=== PATIENT | male | born 1995 | race Hispanic/Latino ===

== ENCOUNTER 2018-09-07 22:27 | Emergency (ER) | payer BC, OTHER, SELFPAY ==
[2018-09-07] MEDS ORDERED: DEXAMETHASONE 4 MG/ML VIAL ONE (23:27)
[2018-09-07] MEDS ORDERED: HYDROCODONE/CHLORPHEN 5 ML/OSYR ONE (23:27)
[2018-09-07] MEDS ORDERED: PEN G BENZ LA 2.4 MU/4 ML SYRINGE IM ONE (23:48)
--- NOTE | 2018-09-07 23:56 | ER ---
Nurse's Notes [facility] Name: Jesus Pitt Age: 22 yrs Sex: Male : 1995 Arrival Date: 09/07/2018 Time: 22:30 Bed 16 Private MD: Diagnosis: Streptococcal pharyngitis;Fever presenting with conditions classified elsewhere Presentation: 09/07 22:38 Presenting complaint: Patient states: he has a sore throat and cough, feeling weak with bb cold sweats x 2 days pt is taking OTC medications with no relief. Transition of care: patient was not received from another setting of care. Onset of symptoms was September 05, 2018. Risk Assessment: Do you want to hurt yourself or someone else? Patient reports no desire to harm self or others. Initial Sepsis Screen: Does the patient meet any 2 criteria? No. Patient's initial sepsis screen is negative. Does the patient have a suspected source of infection? No. Patient's initial sepsis screen is negative. Care prior to arrival: None. 22:38 Method Of Arrival: Ambulatory bb 22:38 Acuity: KARLA 4 bb Historical: - Allergies: 22:42 No Known Allergies; bb - Home Meds: 22:42 None [Active]; bb - PMHx: 22:42 ADD/ADHD; bb - PSHx: 22:42 None; bb - Immunization history:: Adult Immunizations unknown. - Ebola Screening: : No symptoms or risks identified at this time. - Social history:: Smoking status: Patient uses tobacco products, denies chronic smoking, but will smoke occasionally, Patient uses alcohol, but reports only rare drinking. Screenin:40 Abuse screen: Denies threats or abuse. Nutritional screening: No deficits noted. jb4 Tuberculosis screening: No symptoms or risk factors identified. Fall Risk None identified. Assessment: 22:40 General: Appears in no apparent distress. uncomfortable, Behavior is calm, cooperative, jb4 appropriate for age. Pain: Complains of pain in neck Pain does not radiate. Pain currently is 4 out of 10 on a pain scale. Neuro: Level of Consciousness is awake, alert, obeys commands, Oriented to person, place, time, situation. Cardiovascular: Heart tones S1 S2 present Patient's skin is warm and dry. Respiratory: Reports cough that is non-productive, Airway is patent Respiratory effort is even, unlabored, Respiratory pattern is regular, symmetrical, Breath sounds are clear bilaterally. GI: No signs and/or symptoms were reported involving the gastrointestinal system. : No signs and/or symptoms were reported regarding the genitourinary system. EENT: Throat is reddened. Derm: Skin is intact, Skin is pink, warm \T\ dry. Musculoskeletal: Circulation, motion, and sensation intact. 09/08 00:09 Reassessment: Patient appears in no apparent distress at this time. Patient and/or jb4 family updated on plan of care and expected duration. Pain level reassessed. Patient is alert, oriented x 3, equal unlabored respirations, skin warm/dry/pink. Patient states feeling better. Vital Signs: 09/07 22:42 BP 115 / 63; Pulse 104; Resp 18 S; Temp 99.2(O); Pulse Ox 100% on R/A; Weight 104.33 kg bb (R); Height 5 ft. 11 in. (180.34 cm) (R); Pain 9/10; 22:55 BP 114 / 73; Pulse 100; Resp 18; Pulse Ox 99% on R/A; mt 09/08 00:09 BP 109 / 53; Pulse 96; Resp 18; Pulse Ox 100% on R/A; jb4 09/07 22:42 Body Mass Index 32.08 (104.33 kg, 180.34 cm) bb ED Course: 09/07 22:30 Patient arrived in ED. es 22:39 Jesus Antonio, RN is Primary Nurse. jb4 22:40 Patient has correct armband on for positive identification. Bed in low position. Call jb4 light in reach. Side rails up X 1. Pulse ox on. NIBP on. 22:42 Triage completed. bb 22:42 Naye Santamaria FNP-C is PHCP. snw 22:42 Walter Kimbrough MD is Attending Physician. snw 22:42 Arm band placed on Patient placed in an exam room, on a stretcher, on pulse oximetry. bb Family accompanied patient. 09/08 00:09 No provider procedures requiring assistance completed. Patient did not have IV access jb4 during this emergency room visit. Administered Medications: 09/07 23:25 Drug: Tussionex Pennkinetic ER 5 ml Route: PO; jb4 09/08 00:12 Follow up: Response: No adverse reaction; Pain is decreased [facility] 09/07 23:26 Drug: Decadron - Dexamethasone 10 mg {Note: given PO per provider orders. .} Route: jb4 IVP; Site: Other; 09/08 00:11 Follow up: Response: No adverse reaction 4 09/07 23:46 Drug: Bicillin L-A 2.4 million units Route: IM; Site: left gluteus; jb4 09/08 00:11 Follow up: Response: No adverse reaction jb4 Outcome: 09/07 23:55 Discharge ordered by MD. jim 09/08 00:09 Discharged to home ambulatory, with family. jb4 Condition: stable Discharge instructions given to patient, family, Instructed on discharge instructions, follow up and referral plans. medication usage, Demonstrated understanding of instructions, follow-up care, medications, Prescriptions given X 2. 00:12 Patient left the ED. jb4 Signatures: Naye Santamaria, LENS CLEANER-C LENS CLEANER-Csnw Jeanette Bueno Brenda, RN RN Jesus Acosta RN RN jbNilam Hensley ok
--- NOTE | 2018-09-07 23:56 | EDPHYS ---
Physician Documentation [facility] Name: Jesus Pitt Age: 22 yrs Sex: Male : 1995 Arrival Date: 09/07/2018 Time: 22:30 Bed 16 Private MD: ED Physician Walter Kimbrough HPI: 09/07 23:22 This 22 yrs old Male presents to ER via Ambulatory with complaints of Fever, snw Cough, Sore Throat, Congestion. 23:22 The patient reports fever, not measured (subjective). Onset: The symptoms/episode snw began/occurred suddenly, 2 day(s) ago, and became persistent. Modifying factors: there are no obvious modifying factors. Associated signs and symptoms: Pertinent positives: cough, decreased appetite, myalgias, sinus congestion, sore throat. Severity of symptoms: At their worst the symptoms were moderate severe in the emergency department the symptoms are unchanged. The patient has not experienced similar symptoms in the past. The patient has not recently seen a physician. pt states he coughs until vomiting. Historical: - Allergies: 22:42 No Known Allergies; bb - Home Meds: 22:42 None [Active]; bb - PMHx: 22:42 ADD/ADHD; bb - PSHx: 22:42 None; bb - Immunization history:: Adult Immunizations unknown. - Ebola Screening: : No symptoms or risks identified at this time. - Social history:: Smoking status: Patient uses tobacco products, denies chronic smoking, but will smoke occasionally, Patient uses alcohol, but reports only rare drinking. ROS: 23:21 Eyes: Negative for injury, pain, redness, and discharge, Neck: Negative for injury, snw pain, and swelling, Cardiovascular: Negative for chest pain, palpitations, and edema, Abdomen/GI: Negative for abdominal pain, nausea, vomiting, diarrhea, and constipation, Back: Negative for injury and pain, : Negative for injury, bleeding, discharge, and swelling, MS/Extremity: Negative for injury and deformity, Skin: Negative for injury, rash, and discoloration, Neuro: Negative for headache, weakness, numbness, tingling, and seizure. 23:21 Constitutional: Positive for body aches, chills, fatigue, fever, malaise, poor PO intake. 23:21 ENT: Positive for sinus congestion, sore throat. 23:21 Respiratory: Positive for cough. Exam: 23:20 Head/Face: Normocephalic, atraumatic. Eyes: Pupils equal round and reactive to light, snw extra-ocular motions intact. Lids and lashes normal. Conjunctiva and sclera are non-icteric and not injected. Cornea within normal limits. Periorbital areas with no swelling, redness, or edema. Neck: Trachea midline, no thyromegaly or masses palpated, and no cervical lymphadenopathy. Supple, full range of motion without nuchal rigidity, or vertebral point tenderness. No Meningismus. Chest/axilla: Normal chest wall appearance and motion. Nontender with no deformity. No lesions are appreciated. 23:20 Abdomen/GI: Soft, non-tender, with normal bowel sounds. No distension or tympany. No guarding or rebound. No evidence of tenderness throughout. Back: No spinal tenderness. No costovertebral tenderness. Full range of motion. Skin: Warm, dry with normal turgor. Normal color with no rashes, no lesions, and no evidence of cellulitis. MS/ Extremity: Pulses equal, no cyanosis. Neurovascular intact. Full, normal range of motion. Neuro: Awake and alert, GCS 15, oriented to person, place, time, and situation. Cranial nerves II-XII grossly intact. Motor strength 5/5 in all extremities. Sensory grossly intact. Cerebellar exam normal. Normal gait. Psych: Awake, alert, with orientation to person, place and time. Behavior, mood, and affect are within normal limits. 23:20 Constitutional: The patient appears awake, anxious, restless, uncomfortable. 23:20 ENT: External ear(s): are unremarkable, TM's: are normal, Nose: is normal, Mouth: is normal, Posterior pharynx: Airway: normal, Tonsils: bilaterally enlarged, with erythema, with exudate, Voice: is hoarse. 23:20 Cardiovascular: Rate: tachycardic, Rhythm: regular, Heart sounds: normal. 23:20 Respiratory: the patient does not display signs of respiratory distress, Respirations: normal, Breath sounds: are clear throughout, bronchitic cough. Vital Signs: 22:42 BP 115 / 63; Pulse 104; Resp 18 S; Temp 99.2(O); Pulse Ox 100% on R/A; Weight 104.33 kg bb (R); Height 5 ft. 11 in. (180.34 cm) (R); Pain 07/15; 22:55 BP 114 / 73; Pulse 100; Resp 18; Pulse Ox 99% on R/A; mt 09/08 00:09 BP 109 / 53; Pulse 96; Resp 18; Pulse Ox 100% on R/A; jb4 09/07 22:42 Body Mass Index 32.08 (104.33 kg, 180.34 cm) bb MDM: 09/07 23:08 Patient medically screened. snw 23:56 Data reviewed: vital signs, nurses notes. Data interpreted: Pulse oximetry: on room air snw is 99 %. Interpretation: normal. Counseling: I had a detailed discussion with the patient and/or guardian regarding: the historical points, exam findings, and any diagnostic results supporting the discharge/admit diagnosis, lab results, the need for outpatient follow up, to return to the emergency department if symptoms worsen or persist or if there are any questions or concerns that arise at home. Special discussion: Based on the history and exam findings, there is no indication for further emergent testing or inpatient evaluation. I discussed with the patient/guardian the need to see the primary care provider for further evaluation of the symptoms. 09/07 22:43 Order name: Flu; Complete Time: 23:23 snw 09/07 22:43 Order name: Strep; Complete Time: 23:25 snw Administered Medications: 23:25 Drug: Tussionex Pennkinetic ER 5 ml Route: PO; [facility] 09/08 00:12 Follow up: Response: No adverse reaction; Pain is decreased [facility] 09/07 23:26 Drug: Decadron - Dexamethasone 10 mg {Note: given PO per provider orders. .} Route: jb4 IVP; Site: Other; 09/08 00:11 Follow up: Response: No adverse reaction [facility] 09/07 23:46 Drug: Bicillin L-A 2.4 million units Route: IM; Site: left gluteus; [facility] 09/08 00:11 Follow up: Response: No adverse reaction [facility] Disposition: 00:27 Co-signature as Attending Physician, Walter Kimbrough MD. pkl Disposition: 09/07/18 23:55 Discharged to Home. Impression: Streptococcal pharyngitis, Fever presenting with conditions classified elsewhere. - Condition is Stable. - Discharge Instructions: Fever, Adult, Strep Throat, Upper Respiratory Infection, Adult, Rehydration, Adult. - Prescriptions for Tessalon Perles 100 mg Oral Capsule - take 1 capsule by ORAL route every 8 hours As needed; 15 capsule. promethazine 25 mg Oral Tablet - take 1 tablet by ORAL route every 6 hours As needed; 20 tablet. - Work release form, Medication Reconciliation Form, Thank You Letter, Antibiotic Education, Prescription Opioid Use form. - Follow up: Private Physician; When: 2 - 3 days; Reason: Recheck today's complaints, Continuance of care, Re-evaluation by your physician. Follow up: Emergency Department; When: As needed; Reason: Worsening of condition. Signatures: Dispatcher [employer] EDMS Walter Kimbrough MD MD pkl Therrien, Shelly, COLLIN-C MANAGER WOUND-Kpw Janell Antonio, RN RN bb Jesus Antonio RN RN jb4 Corrections: (The following items were deleted from the chart) 00:12 09/07 23:55 09/07/2018 23:55 Discharged to Home. Impression: Streptococcal pharyngitis; jb4 Fever presenting with conditions classified elsewhere. Condition is Stable. Discharge Instructions: Fever, Adult, Strep Throat, Upper Respiratory Infection, Adult, Rehydration, Adult. Prescriptions for Tessalon Perles 100 mg Oral Capsule - take 1 capsule by ORAL route every 8 hours As needed; 15 capsule, promethazine 25 mg Oral Tablet - take 1 tablet by ORAL route every 6 hours As needed; 20 tablet. and Forms are Work release form, Medication Reconciliation Form, Thank You Letter, Antibiotic Education, Prescription Opioid Use. Follow up: Private Physician; When: 2 - 3 days; Reason: Recheck today's complaints, Continuance of care, Re-evaluation by your physician. Follow up: Emergency Department; When: As needed; Reason: Worsening of condition. snw
== END 2018-09-08 00:12 | disposition home or self-care (01) ==
LOC: ER 22:27
DX: J02.0 Streptococcal pharyngitis (principal); Z72.0 Tobacco use
CPT/HCPCS: 87081; 87804; 96372; 96374; 99283; J0561

== ENCOUNTER 2019-07-14 14:51 | Emergency (ER) | payer BC, OTHER ==
--- NOTE | 2019-07-14 17:04 | ER ---
Nurse's Notes [facility] Name: Jesus Pitt Age: 23 yrs Sex: Male : 1995 Arrival Date: 07/14/2019 Time: 14:56 Bed 24 Private MD: Diagnosis: Acute upper respiratory infection, unspecified Presentation: 07/14 15:05 Presenting complaint: Patient states: headache, sore throat, cough, nausea, vomiting, aa5 fatigue that began Sunday morning. Pt also c/o body aches. Transition of care: patient was not received from another setting of care. Onset of symptoms was July 2019. Risk Assessment: Do you want to hurt yourself or someone else? Patient reports no desire to harm self or others. Initial Sepsis Screen: Does the patient meet any 2 criteria? No. Patient's initial sepsis screen is negative. Does the patient have a suspected source of infection? No. Patient's initial sepsis screen is negative. Care prior to arrival: None. 15:05 Acuity: KARLA 3 aa5 15:05 Method Of Arrival: Ambulatory aa5 Historical: - Allergies: 15:07 No Known Allergies; aa5 - PMHx: 15:07 ADD/ADHD; Asthma; aa5 - PSHx: 15:07 None; aa5 - Immunization history:: Flu vaccine is not up to date. - Social history:: Smoking status: Patient uses tobacco products, denies chronic smoking, but will smoke occasionally. - Ebola Screening: : No symptoms or risks identified at this time. - Family history:: not pertinent. - Hospitalizations: : No recent hospitalization is reported. Screenin:10 Abuse screen: Denies threats or abuse. Denies injuries from another. Nutritional ca1 screening: No deficits noted. Tuberculosis screening: No symptoms or risk factors identified. Fall Risk None identified. Assessment: 15:10 General: Appears in no apparent distress. comfortable, Behavior is calm, cooperative, ca1 appropriate for age, Reports chills for 12-24 hours. Pain: Complains of pain in face and scalp Pain currently is 8 out of 10 on a pain scale. Pain began 1 day ago. Is intermittent. Neuro: Level of Consciousness is awake, alert, obeys commands, Oriented to person, place, time, situation. Cardiovascular: Heart tones S1 S2 present Capillary refill < 3 seconds Patient's skin is warm and dry. Pulses are all present. Respiratory: Reports cough that is productive, since yesterday Airway is patent Respiratory effort is even, unlabored, Respiratory pattern is regular, symmetrical, Breath sounds are clear bilaterally. GI: Abdomen is round non-distended, Bowel sounds present X 4 quads. Abd is soft and non tender X 4 quads. : No deficits noted. No signs and/or symptoms were reported regarding the genitourinary system. EENT: Reports nasal congestion since yesterday. Derm: Skin is intact, is healthy with good turgor, Skin is pink, warm \T\ dry. Musculoskeletal: Circulation, motion, and sensation intact. Capillary refill < 3 seconds, Range of motion: intact in all extremities. 16:31 Reassessment: Patient appears in no apparent distress at this time. Patient and/or ca1 family updated on plan of care and expected duration. Pain level reassessed. Patient is alert, oriented x 3, equal unlabored respirations, skin warm/dry/pink. Vital Signs: 15:07 BP 129 / 77; Pulse 91; Resp 18 S; Temp 99.1(O); Pulse Ox 100% on R/A; Weight 99.79 kg aa5 (R); Height 5 ft. 11 in. (180.34 cm) (R); Pain 7/10; 16:39 BP 125 / 71; Pulse 95; Resp 18; Temp 99.4(O); Pulse Ox 100% on R/A; ca1 15:07 Body Mass Index 30.68 (99.79 kg, 180.34 cm) aa5 ED Course: 14:56 Patient arrived in ED. aa5 15:05 Arm band placed on. aa5 15:06 Triage completed. aa5 15:13 Joel Ronquillo MD is Attending Physician. rn 15:17 Gayatri Mathew RN is Primary Nurse. ca1 15:24 Flu and/or RSV swab sent to lab. Strep swab sent to lab. Patient maintains SpO2 jp3 saturation greater than 95% on room air. 15:24 Flu Sent. jp3 15:24 Strep Sent. jp3 15:25 Bed in low position. Call light in reach. Verbal reassurance given. Pulse ox on. NIBP jp3 on. 16:46 No provider procedures requiring assistance completed. Patient did not have IV access ca1 during this emergency room visit. Administered Medications: No medications were administered Outcome: 16:40 Discharge ordered by . rn 16:46 Discharged to home ambulatory, with significant other. ca1 16:46 Condition: stable 16:46 Discharge instructions given to patient, Instructed on discharge instructions, follow up and referral plans. Demonstrated understanding of instructions, follow-up care. 16:47 Patient left the ED. ca1 Signatures: Joel Ronquillo MD MD rn Calderon, Audri, RN RN aa5 Philip Mccormack 3 Gayatri Mathew RN RN ca1
--- NOTE | 2019-07-14 17:05 | EDPHYS ---
Physician Documentation [facility] Name: Jesus Pitt Age: 23 yrs Sex: Male : 1995 Arrival Date: 07/14/2019 Time: 14:56 Bed 24 Private MD: ED Physician Joel Ronquillo HPI: 07/14 15:41 This 23 yrs old Male presents to ER via Ambulatory with complaints of Flu rn Symptoms. 15:41 The patient or guardian reports cough, flu symptoms, low-grade fever, myalgias, no rn appetite. Onset: The symptoms/episode began/occurred 3 day(s) ago. Severity of symptoms: At their worst the symptoms were moderate, in the emergency department the symptoms have improved. Modifying factors: The symptoms are alleviated by nothing, the symptoms are aggravated by nothing. The patient has not experienced similar symptoms in the past. Reports flu-like symptoms of myalgias, weakness, fatigue, malaise, low grade fever, for 3 days, no sick contacts. Denies fever. Decreased appetite. + chills and muscle aches.. Historical: - Allergies: 15:07 No Known Allergies; aa5 - PMHx: 15:07 ADD/ADHD; Asthma; aa5 - PSHx: 15:07 None; aa5 - Immunization history:: Flu vaccine is not up to date. - Social history:: Smoking status: Patient uses tobacco products, denies chronic smoking, but will smoke occasionally. - Ebola Screening: : No symptoms or risks identified at this time. - Family history:: not pertinent. - Hospitalizations: : No recent hospitalization is reported. ROS: 15:41 Constitutional: + fever and chills Eyes: Negative for injury, pain, redness, and broomcorn press feeder, ENT: + nasal congestion and sore throat Neck: Negative for injury, pain, and swelling, Cardiovascular: Negative for chest pain, palpitations, and edema, Respiratory: + non-productive cough, neg for sob Abdomen/GI: Negative for abdominal pain, vomiting, and constipation, MS/Extremity: Negative for injury and deformity, Skin: Negative for injury, rash, and discoloration, Neuro: Negative for headache, numbness, tingling, and seizure. Exam: 15:41 Constitutional: This is a well developed, well nourished patient who is awake, alert, rn and in no acute distress. NO difficulty walking to room. Head/Face: Normocephalic, atraumatic. Eyes: Pupils equal round and reactive to light, extra-ocular motions intact. Lids and lashes normal. Conjunctiva and sclera are non-icteric and not injected. Cornea within normal limits. Periorbital areas with no swelling, redness, or edema. ENT: MMM Neck: + tender right cervical LAD, no meningismus Cardiovascular: Regular rate and rhythm. No pulse deficits. Respiratory: Lungs have equal breath sounds bilaterally, clear to auscultation. No increased work of breathing, no retractions or nasal flaring. Abdomen/GI: soft, non-tender MS/ Extremity: Pulses equal, no cyanosis. Neurovascular intact. Full, normal range of motion. Equal circumference. Neuro: Awake and alert, GCS 15, oriented to person, place, time, and situation. Cranial nerves II-XII grossly intact. Motor strength 5/5 in all extremities. Sensory grossly intact. Cerebellar exam normal. Normal gait. Vital Signs: 15:07 BP 129 / 77; Pulse 91; Resp 18 S; Temp 99.1(O); Pulse Ox 100% on R/A; Weight 99.79 kg aa5 (R); Height 5 ft. 11 in. (180.34 cm) (R); Pain 7/10; 16:39 BP 125 / 71; Pulse 95; Resp 18; Temp 99.4(O); Pulse Ox 100% on R/A; ca1 15:07 Body Mass Index 30.68 (99.79 kg, 180.34 cm) aa5 MDM: 15:13 Patient medically screened. rn 16:39 Differential Diagnosis: Influenza Upper Respiratory Infection Pharyngitis Viral rn Syndrome. Data reviewed: vital signs, nurses notes, lab test result(s), and as a result, I will discharge patient. Counseling: I had a detailed discussion with the patient and/or guardian regarding: the historical points, exam findings, and any diagnostic results supporting the discharge/admit diagnosis, lab results, the need for outpatient follow up, to return to the emergency department if symptoms worsen or persist or if there are any questions or concerns that arise at home. Special discussion: I discussed with the patient/guardian in detail that at this point there is no indication for admission to the hospital. It is understood, however, that if the symptoms persist or worsen the patient needs to return immediately for re-evaluation. 07/14 15:13 Order name: Strep rn 07/14 15:13 Order name: Flu rn 07/14 16:07 Order name: Throat Culture EDMS Administered Medications: No medications were administered Disposition: 07/14/19 16:40 Discharged to Home. Impression: Acute upper respiratory infection, unspecified. - Condition is Stable. - Discharge Instructions: Upper Respiratory Infection, Adult, Viral Respiratory Infection. - Medication Reconciliation Form, Thank You Letter, Antibiotic Education, Prescription Opioid Use form. - Follow up: Private Physician; When: As needed; Reason: Recheck today's complaints, Re-evaluation by your physician. - Problem is new. - Symptoms have improved. Signatures: Dispatcher [employer] EDMS Joel Ronquillo MD MD rn Calderon, Maricel, RN RN aa5 Priyanka, Gayatri RN ARIANA ca1 Corrections: (The following items were deleted from the chart) 15:45 15:41 Constitutional: + fever and chills Eyes: Negative for injury, pain, redness, and broomcorn press feeder, ENT: + nasal congestion and sore throat Neck: Negative for injury, pain, and swelling, Cardiovascular: Negative for chest pain, palpitations, and edema, Respiratory: + non-productive cough, neg for sob Abdomen/GI: Negative for abdominal pain, vomiting, and constipation, MS/Extremity: Negative for injury and deformity, Skin: Negative for injury, rash, and discoloration, Neuro: Negative for headache, weakness, numbness, tingling, and seizure, rn 15:47 15:41 Constitutional: This is a well developed, well nourished patient who is awake, rn alert, and in no acute distress. NO difficulty walking to room. Head/Face: Normocephalic, atraumatic. Eyes: Pupils equal round and reactive to light, extra-ocular motions intact. Lids and lashes normal. Conjunctiva and sclera are non-icteric and not injected. Cornea within normal limits. Periorbital areas with no swelling, redness, or edema. ENT: MMM Neck: + tender right cervical LAD Cardiovascular: Regular rate and rhythm. No pulse deficits. Respiratory: Lungs have equal breath sounds bilaterally, clear to auscultation. No increased work of breathing, no retractions or nasal flaring. Abdomen/GI: soft, non-tender MS/ Extremity: Pulses equal, no cyanosis. Neurovascular intact. Full, normal range of motion. Equal circumference. Neuro: Awake and alert, GCS 15, oriented to person, place, time, and situation. Cranial nerves II-XII grossly intact. Motor strength 5/5 in all extremities. Sensory grossly intact. Cerebellar exam normal. Normal gait. rn 16:47 16:40 07/14/2019 16:40 Discharged to Home. Impression: Acute upper respiratory ca1 infection, unspecified. Condition is Stable. Forms are Medication Reconciliation Form, Thank You Letter, Antibiotic Education, Prescription Opioid Use. Follow up: Private Physician; When: As needed; Reason: Recheck today's complaints, Re-evaluation by your physician. Problem is new. Symptoms have improved. rn
[2019-07-14 19:12] VITALS: O2SAT 100
[2019-07-14 19:13] VITALS: BP 125/71; TEMP 99.4
== END 2019-07-14 16:47 | disposition home or self-care (01) ==
LOC: ER 14:51
DX: J06.9 Acute upper respiratory infection, unspecified (principal); Z72.0 Tobacco use
CPT/HCPCS: 87070; 87081; 87804; 99284

== ENCOUNTER 2020-05-12 13:20 | Emergency (ER) | payer OTHER, SELFPAY ==
--- OUTSIDE RECORDS SUMMARY | 2020-05-12 13:24 | XMS REPORT | Continuity of Care Document ---
:1995 Author Organization [facility] t Address [address] [place] [address] Care Team Providers Name Role Phone Rachel Denise Attending Clinician Doctor Unasslacho, Name Attending Clinician Unavailable Clay DUBON Attending Clinician Liberty POLANCO Attending Clinician Problems This patient has no known problems. Allergies, Adverse Reactions, Alerts This patient has no known allergies or adverse reactions. Medications This patient has no known medications. Procedures This patient has no known procedures. Encounters Start End Encounter Admission Attending Care Care Encounter Source Date/Time Date/Time Type Type Clinicians Facility Department ID 2019-07-25 2019-07-25 Emergency Piotr Borges [facility] [id number] [id number] 15:52:54 18:06:00 Rachel Garcia [id number] [place] [id number] [place] [id number] 2019-07-25 2019-07-25 Orders Doctor GARCIA [id number] 00:00:00 00:00:00 Only UnassAJ monk [id number] [place] [facility] [phone] [id number] 2019-07-17 2019-07-17 Office Clay [facility] [id number] 14:49:00 15:42:10 Visit Tabitha Garcia [id number] [place] [id number] Profess[facility] [phone] [place] 059 Building 2019-07-17 2019-07-17 Letter [facility] [id number] 00:00:00 00:00:00 (Out) [facility] [id number] [place] [id number] Professio [phone] [place] [address] [address] 2019-07-17 2019-07-17 Letter [facility] [id number] 00:00:00 00:00:00 (Out) [facility] [id number] [place] [id number] Professio [phone] [place] [address] [address] 2019-07-16 2019-07-16 Office [facility] [id number] 13:38:45 14:29:22 Visit [facility] [id number] [place] [id number] Professio [phone] [place] [address] [address] 2019-07-16 2019-07-16 Telephone [facility] [id number] 00:00:00 00:00:00 [facility] [id number] Surgical [id number] [facility] [phone] [address] [place] Results This patient has no known results.
[2020-05-12] MEDS ORDERED: HYDROCODONE/APAP 5/325 MG TAB ONE (14:48)
--- NOTE | 2020-05-12 15:05 | RAD REPORT ---
EXAM DESCRIPTION: CT - Stone Protocol - 05/12/2020 2:45 pm CLINICAL HISTORY: PAIN, left back and flank pain, left lower extremity radiculopathy COMPARISON: No comparisons TECHNIQUE: Axial 3 mm thick images were obtained without oral or IV contrast. The [id number] span s the entirety of the system including uppermost abdomen and lung bases. All CT scans are performed using dose optimization technique as appropriate and may include automated exposure control or mA/KV adjustment according to patient size. FINDINGS: No hydronephrosis is present and no obstructing ureteral calculi. No suspicious renal mass es. Isodense masses and pyelonephritis are not excluded on a stone protocol CT scan. No significant a drenal finding. No urinary bladder suspicious finding. Imaged portions of the liver, spleen and pancreas show no suspicious findings on non-contrast imaging . No gallbladder or biliary tree abnormality identified. No suspicious bowel findings. Appendix is normal. No hernia, mass or bulky lymphadenopathy noted. No free air, free fluid or inflammatory stranding. No acute bone finding identified. Patient does have a prominent bulging of disc material midline and left-side at L4-5. There is borderline central spinal stenosis. This does abut the L5 nerve roots as they exit the thecal sac. IMPRESSION: No hydronephrosis, obstructing calculus or acute finding. Isodense masses and pyelonephritis are not excluded on stone protocol technique. No acute GI process. No peritoneal or retroperitoneal suspicious finding. Prominent protrusion of disc material L4-5 contacting and slightly flattening the thecal sac and bila teral L5 nerve roots. Central canal detail is limited on CT imaging. This would be a potential source for a left lower extremity L5 radiculopathy.
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
--- NOTE | 2020-05-12 15:20 | ER ---
Nurse's Notes [facility] Name: Jesus Pitt Age: 24 yrs Sex: Male : 1995 Arrival Date: 05/12/2020 Time: 13:30 Bed 18 Private MD: Diagnosis: Radiculopathy, lumbar region Presentation: 05/12 13:37 Chief complaint: Patient states: low back pain that radiates down L leg that began ss yesterday. Pt reports he bent over and felt a pop yesterday. Coronavirus screen: Proceed with normal triage. Patient denies a cough. Patient denies shortness of breath or difficulty breathing. Patient denies measured and/or subjective temperature greater than 100.4F prior to today's visit. Patient denies travel on a cruise ship or to a country the [facility] currently lists as an affected area. Patient denies contact with known and/or suspected case of COVID-19. Ebola Screen: Patient denies exposure to infectious person. Patient denies travel to an Ebola-affected area in the 21 days before illness onset. Initial Sepsis Screen: Does the patient meet any 2 criteria? No. Patient's initial sepsis screen is negative. Does the patient have a suspected source of infection? No. Patient's initial sepsis screen is negative. Risk Assessment: Do you want to hurt yourself or someone else? Patient reports no desire to harm self or others. Onset of symptoms was May 11, 2020. 13:37 Method Of Arrival: Ambulatory ss 13:37 Acuity: KARLA 4 ss Historical: - Allergies: 13:39 No Known Allergies; ss - Home Meds: 13:39 None [Active]; ss - PMHx: 13:39 ADD/ADHD; Asthma; ss - PSHx: 13:39 None; ss - Immunization history:: Adult Immunizations up to date. - Social history:: Smoking status: Patient reports the use of cigarette tobacco products, smokes one-half pack cigarettes per day. Screenin:30 Abuse screen: Denies threats or abuse. Nutritional screening: No deficits noted. vc Tuberculosis screening: No symptoms or risk factors identified. Fall Risk None identified. Assessment: 14:30 General: Appears in no apparent distress. uncomfortable, Behavior is calm, cooperative, vc appropriate for age. Pain: Complains of pain in lumbar area, left low back and right low back Pain radiates to left leg, right posterior aspect of neck and left posterior aspect of neck Pain currently is 10 out of 10 on a pain scale. Quality of pain is described as sharp, Noted to be grimacing. Neuro: Level of Consciousness is awake, alert, obeys commands, Oriented to person, place, time, situation, Appropriate for age. Cardiovascular: Capillary refill < 3 seconds Patient's skin is warm and dry. Respiratory: Airway Respiratory effort is even, unlabored, Respiratory pattern is regular, symmetrical. GI: Abdomen is flat. : No signs and/or symptoms were reported regarding the genitourinary system. EENT: No signs and/or symptoms were reported regarding the EENT system. Musculoskeletal: Circulation, motion, and sensation intact. Reports pain in lumbar area, left low back and right low back Pain is 10 out of 10 on a pain scale. 15:30 Reassessment: Patient appears in no apparent distress at this time. Patient and/or vc family updated on plan of care and expected duration. Pain level reassessed. Patient is alert, oriented x 3, equal unlabored respirations, skin warm/dry/pink. Vital Signs: 13:37 BP 115 / 79; Pulse 75; Resp 17; Temp 98.2(TE); Pulse Ox 99% on R/A; Weight 90.72 kg; ss Height 5 ft. 11 in. (180.34 cm); Pain 10/10; 13:37 Body Mass Index 27.89 (90.72 kg, 180.34 cm) ED Course: 13:30 Patient arrived in ED. fj1 13:38 Triage completed. ss 13:39 Arm band placed on right wrist. ss 14:28 Naye Bernal FNP-C is PHCP. snw 14:28 Akbar Leblanc MD is Attending Physician. snw 14:37 Kary Brock, ARIANA is Primary Nurse. vc 14:43 CT Stone Protocol In Process Unspecified. EDMS 14:53 Patient has correct armband on for positive identification. Patient placed in vc wheelchair to help relieve back pain. 15:36 No provider procedures requiring assistance completed. Patient did not have IV access vc during this emergency room visit. Administered Medications: 14:45 Drug: [place] 5 mg-325 mg 1 tabs Route: PO; vc Outcome: 15:19 Discharge ordered by . diandra 15:37 Patient left the ED. ana 15:37 Discharged to home ambulatory. 15:37 Condition: good 15:37 Discharge instructions given to patient, Instructed on discharge instructions, follow up and referral plans. no drinking with medication, no driving heavy equipment, medication usage, Demonstrated understanding of instructions, follow-up care, medications, Prescriptions given X 2. Signatures: Dispatcher [employer] EDMS Naye Bernal, DIE ATTACHING MACHINE TENDER-C DIE ATTACHING MACHINE TENDER-Kpw Neli Otto RN RN ss Calcote, Vanessa, RN RN Dillan Kamara fj1
[2020-05-12 15:45] VITALS: BP 115/79; TEMP 98.2; O2SAT 99
== END 2020-05-12 15:37 | disposition home or self-care (01) ==
LOC: ER 13:20
DX: M54.16 Radiculopathy, lumbar region (principal); F17.210 Nicotine dependence, cigarettes, uncomplicated
CPT/HCPCS: 74176; 76377; 99283

== ENCOUNTER 2020-06-21 18:12 | Emergency (ER) | payer SELFPAY ==
--- OUTSIDE RECORDS SUMMARY | 2020-06-21 18:14 | XMS REPORT | Continuity of Care Document ---
:1995 Author Organization [facility] t Address [address] [place] [address] Care Team Providers Name Role Phone Rachel Denise Attending Clinician Doctor Unassigned, Name Attending Clinician Unavailable Clay DUBON Attending [...] Department ID 2019-07-25 2019-07-25 Emergency Piotr Borges [facility] [id number] 15:52:54 18:06:00 Rachel Garcia [id number] [place] [id number] [place] [id number] [id number] 2019-07-25 2019-07-25 Orders Doctor GARCIA [id number] 00:00:00 00:00:00 Only UnassignedAJ [id number] [place] [facility] [phone] [id number] 2019-07-17 2019-07-17 Office Clay CABEHZAD 1.2.840.114 [id number] 14:49:00 15:42:10 Visit Tabitha Garcia [id number] [place] [id number] [facility] [phone] [address] 2019-07-17 2019-07-17 Letter [facility] [id number] 00:00:00 00:00:00 (Out) [facility] [id number] [place] [id number] Profess[facility] [phone] [place] [address] [address] 2019-07-17 2019-07-17 Letter [facility] [id number] 00:00:00 00:00:00 (Out) [facility] [id number] [place] [id number] Professio [phone] [place] [address] [address] 2019-07-16 2019-07-16 Office [facility] [id number] 13:38:45 14:29:22 Visit [facility] [id number] [place] [id number] Professio [phone] [place] [address] [address] 2019-07-16 2019-07-16 Telephone [facility] 1.2.840.114 [id number] 00:00:00 00:00:00 [facility] [id number] Surgical [id number] [facility] [phone] [address] [place] Results This patient has no known results.
[2020-06-21 20:58] LABS: Absolute Lymphocytes (CBC) 1.7 K/uL (0.7-4.9); Basophils % 0.4 % (0-1.3); Hematocrit 41.4 % (39.6-49.0); Lymphocytes % 23.1 % (15.3-44.8); MPV 8.8 fL (7.6-11.3); RBC Red Blood Cell Count 4.78 M/uL (4.33-5.43)
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
[2020-06-21 21:08] LABS: BUN Blood Urea Nitrogen 10 mg/dL (7-18); Bicarbonate 28 mmol/L (21-32); Glucose Level 103 mg/dL (74-106); Potassium 4.1 mmol/L (3.5-5.1); Sodium Level 141 mmol/L (136-145)
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
[2020-06-21 23:06] VITALS: TEMP 98.4
[2020-06-21 23:09] VITALS: BP 129/76; O2SAT 97
== END 2020-06-21 22:02 | disposition home or self-care (01) ==
LOC: ER 18:12
DX: F07.81 Postconcussional syndrome (principal); S10.93XA Contusion of unspecified part of neck, initial encounter; V49.50XA Passenger injured in collision with unspecified motor vehicles in traffic accident, initial encounter; F17.210 Nicotine dependence, cigarettes, uncomplicated
CPT/HCPCS: 36415; 70450; 70498; 72125; 80048; 82565; 85025; Q9967

== ENCOUNTER 2020-12-10 03:03 | Emergency (ER) | payer SELFPAY ==
--- OUTSIDE RECORDS SUMMARY | 2020-12-10 03:06 | XMS REPORT | Continuity of Care Document ---
:1995 Author Organization [facility] t Address [address] [place] [address] Care Team Providers Name Role Phone Rachel [...] Department ID 2019-07-25 2019-07-25 Emergency Piotr Borges [facility] [id number] 15:52:54 18:06:00 Rachel Garcia [id number] [place] [id number] [place] [id number] [id number] 2019-07-25 2019-07-25 Orders Doctor GARCIA [id number] 00:00:00 00:00:00 Only UnassignedAJ [id number] Lynndyl [facility] [id number] [id number] 2019-07-17 2019-07-17 Office Clay [facility]BE[facility] [id number] 14:49:00 15:42:10 Visit Tabitha Garcia [id number] [place] [id number] [facility] [phone] [address] 2019-07-17 2019-07-17 Letter [facility] [id number] 00:00:00 00:00:00 (Out) [facility] [id number] [place] [id number] Professio [phone] [place] [id number] [address] 2019-07-17 2019-07-17 Letter [facility] [id number] 00:00:00 00:00:00 (Out) [facility] [id number] [place] [id number] Professio [phone] [place] [address] [address] 2019-07-16 2019-07-16 Office [facility] [id number] 13:38:45 14:29:22 Visit [facility] [id number] [place] [id number] Professio [phone] [place] [address] [address] 2019-07-16 2019-07-16 Telephone [facility] [id number] 00:00:00 00:00:00 [facility] [id number] Surgical [id number] [facility] [phone] [address] [place] Results This patient has no known results.
[2020-12-10] MEDS ORDERED: LIDOCAINE 1% MPF 5 ML VIAL ONE ×2 (03:30→03:48)
[2020-12-10] MEDS ORDERED: NA CHLORIDE 0.9% 1,000 ML ONE (03:30)
[2020-12-10] MEDS ORDERED: CEFAZOLIN/SWI 1gm 1 GM/10 ML SYR ONE (03:31)
[2020-12-10] MEDS ORDERED: TETANUS & DIPHTHERIA TOX,ADULT 0.5 ML VIAL ONE (03:31)
[2020-12-10] MEDS ORDERED: LEVALBUTEROL 1.25 MG/3 ML NEB ONE (03:56)
[2020-12-10] MEDS ORDERED: IPRATROPIUM BROM 0.5MG/2.5ML ONE (03:56)
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
[2020-12-10 05:41] VITALS: TEMP 98.2
[2020-12-10 05:42] VITALS: BP 118/67; O2SAT 98
--- NOTE | 2020-12-10 09:05 | RAD REPORT ---
EXAM DESCRIPTION: RAD - Elbow Left 3 View - 12/10/2020 4:13 am CLINICAL HISTORY: PAIN, fall with elbow trauma COMPARISON: None. FINDINGS: No fracture is identified and no elevated posterior fat pad. There is no dislocation or pe riosteal reaction noted. No foreign body or other soft tissue abnormality. IMPRESSION: Negative left elbow examination.
--- NOTE | 2020-12-10 09:06 | RAD REPORT ---
EXAM DESCRIPTION: RAD - Chest Single View - 12/10/2020 4:14 am CLINICAL HISTORY: COUGH, fall with chest trauma COMPARISON: September 2009 TECHNIQUE: AP portable chest image was obtained 12/10/2020 4:14 am . FINDINGS: Lungs are clear. Heart and vasculature are normal. No pneumothorax seen. Trace amount of c ostophrenic angle blunting noted on the right. This may be imaging artifact or summation artifact. No specific history indicating right-sided chest pain. No acute bony abnormality seen. No acute aortic findings suspected. IMPRESSION: No acute cardiopulmonary process suspected. Any continued concerns for rib injury could be addressed with dedicated rib films.
--- NOTE | 2020-12-10 09:07 | RAD REPORT ---
EXAM DESCRIPTION: Shoulder Right 2 View - 12/10/2020 4:14 am CLINICAL HISTORY: PAIN, fall, shoulder pain COMPARISON: No comparisons TECHNIQUE: Internal and external rotation views of the right shoulder were obtained. FINDINGS: There is no fracture or dislocation. AC joint is normal in appearance. No acute or suspic ious findings. IMPRESSION: Negative two-view right shoulder examination.
--- NOTE | 2020-12-10 09:07 | RAD REPORT ---
EXAM DESCRIPTION: RAD - Foot Left 3 View - 12/10/2020 4:13 am CLINICAL HISTORY: PAINfall, foot and ankle pain, posterior foot laceration COMPARISON: No comparisons FINDINGS: No fracture, dislocation or periosteal reaction. No acute or destructive bony process. No air or foreign body in the soft tissues. IMPRESSION: Negative left foot examination.
--- NOTE | 2020-12-10 09:08 | RAD REPORT ---
EXAM DESCRIPTION: RAD - Wrist Left 3 View - 12/10/2020 4:13 am CLINICAL HISTORY: PAIN, fall, wrist pain COMPARISON: Wrist Left 3 View dated 02/23/2010pril 2009 FINDINGS: No fracture is identified. Punctate bone density adjacent to piece form bone is not believ ed to be an acute finding. There is no dislocation or periosteal reaction noted. No foreign body or o ther soft tissue abnormality. IMPRESSION: Negative left wrist examination.
--- NOTE | 2020-12-10 18:01 | RAD REPORT ---
EXAM DESCRIPTION: CT - [id number] - 12/10/2020 6:41 am CLINICAL HISTORY: PAIN COMPARISON: 06/11/2020 TECHNIQUE: Axial CT of the head obtained from the skull apex to the skull base without contrast. Axi al CT images of the cervical spine obtained from the skull base through the thoracic inlet. Sagittal and coronal reformatted images available. FINDINGS: CT head: No acute intracranial hemorrhage identified. No mass, mass effect, shift of the midline, abnormal ext ra-axial fluid collection or CT evidence of acute ischemic change identified. The ventricular system is unremarkable. No acute abnormalities of the supratentorial white matter, basal ganglia, cerebell um, or brainstem. The visualized paranasal sinuses and the mastoids are clear. No skull fracture identified. Visualized orbits and globes are unremarkable. Cervical CT: Alignment of the cervical spine is maintained without evidence of subluxation. The atlantoaxial, at lantodental, and occipitoatlantal intervals are preserved. No fracture identified. Vertebral body h eight preserved. Prevertebral soft tissues are unremarkable. Mild multilevel endplate spondylosis. Mild loss of intervertebral disc height at C5/6. Visualized skull base is intact. No fracture of the visualized facial bones. Visualized mastoid air c ells and paranasal sinuses are well aerated. Visualized thyroid is unremarkable. No cervical lymphadenopathy. No pneumothorax in the visualized lung apices. IMPRESSION: 1. No acute intracranial abnormality. 2. No acute fracture or subluxation of the cervical spine. This exam was performed according to our departmental dose-optimization program, which includes autom ated exposure control, adjustment of the mA and/or kV according to patient size and/or use of iterati ve reconstruction technique. Electronically signed by: Ty Wooten 12/10/2020 4:55 AM ALLERGIST IMMUNOLOGIST Due to temporary technical issues with the PACS/Fluency reporting system, reports are being signed by the in house radiologists without review as a courtesy to insure prompt reporting. The interpreting radiologist is fully responsible for the content of the report.
== END 2020-12-10 05:36 | disposition home or self-care (01) ==
LOC: ER 03:03
PROC: 0JQR0ZZ Repair Left Foot Subcutaneous Tissue and Fascia, Open Approach (ICD-10-PCS; principal; 2020-12-10)
DX: S91.312A Laceration without foreign body, left foot, initial encounter (principal); S80.211A Abrasion, right knee, initial encounter; S50.02XA Contusion of left elbow, initial encounter; S60.212A Contusion of left wrist, initial encounter; W10.9XXA Fall (on) (from) unspecified stairs and steps, initial encounter; Y93.89 Activity, other specified; Y92.9 Unspecified place or not applicable; Z23 Encounter for immunization; Z72.0 Tobacco use
CPT/HCPCS: 70450; 71045; 72125; 90471; 90714; 96365; 96366; 99285; J0690; J7030

== ENCOUNTER 2020-12-26 18:18 | Emergency (ER) | payer SELFPAY ==
--- OUTSIDE RECORDS SUMMARY | 2020-12-26 18:21 | XMS REPORT | Continuity of Care Document ---
:1995 Author Organization [facility] t Address [address] [place] [address] Care Team Providers Name Role Phone Rachel [...] Department ID 2019-07-25 2019-07-25 Emergency Piotr Borges [facility] [id number] 15:52:54 18:06:00 Rachel Garcia [id number] [phone] 2019-07-25 2019-07-25 Orders Doctor GARCIA [id number] 00:00:00 00:00:00 Only UnassignedAJ [id number] Bailey [facility] [phone] [id number] 2019-07-17 2019-07-17 Office Clay SCBEHZAD [id number] 14:49:00 15:42:10 Visit Tabitha Garcia [id number] [place] [id number] [facility] [phone] [address] 2019-07-17 2019-07-17 Letter [facility] [id number] 00:00:00 00:00:00 (Out) [facility] [id number] [place] [id number] Professio [phone] [place] [address] [address] 2019-07-17 2019-07-17 Letter [facility] [id number] 00:00:00 00:00:00 (Out) [facility] [id number] [place] [id number] Professio [phone] [place] [address] [address] 2019-07-16 2019-07-16 Office [facility] [id number] 13:38:45 14:29:22 Visit [facility] [id number] [place] [id number] Professio [phone] [place] [address] [address] 2019-07-16 2019-07-16 Telephone [facility] [id number] 00:00:00 00:00:00 [facility] [id number] Surgical [id number] Specialti [phone] [address] [place] Results This patient has no known results.
--- NOTE | 2020-12-26 19:37 | EDPHYS ---
Physician Documentation [facility] Name: Jesus Pitt Age: 25 yrs Sex: Male : 1995 Arrival Date: 12/26/2020 Time: 18:19 Bed 12 Private MD: ED Physician Joel Ronquillo HPI: 12/26 19:21 This 25 yrs old Male presents to ER via Ambulatory with complaints of Suture jmm Removal. 19:21 The patient has sutures on the left foot. Sutures/kimberley progress: The patient's wound jmm displays purulent drainage. Patient denies fever or chills. Patient prescribed oral abx. Injury occurred on the . Historical: - Allergies: 18:28 No Known Allergies; ca1 - Home Meds: 18:28 None [Active]; ca1 - PMHx: 18:28 ADD/ADHD; Asthma; ca1 - PSHx: 18:28 None; ca1 - Immunization history:: Last tetanus immunization: up to date Flu vaccine is not up to date. - Social history:: Smoking status: Patient reports the use of cigarette tobacco products, smokes one-half pack cigarettes per day. ROS: 19:21 Constitutional: Negative for fever, chills, and weight loss, Cardiovascular: Negative jmm for chest pain, palpitations, and edema, Respiratory: Negative for shortness of breath, cough, wheezing, and pleuritic chest pain. 19:21 Skin: Positive for laceration(s). 19:21 All other systems are negative. Exam: 19:21 Constitutional: This is a well developed, well nourished patient who is awake, alert, jmm and in no acute distress. Head/Face: atraumatic. Eyes: EOMI, no conjunctival erythema appreciated ENT: Moist Mucus Membranes Neck: Trachea midline, Supple Chest/axilla: Normal chest wall appearance and motion. Cardiovascular: Regular rate and rhythm. No edema appreciated Respiratory: Normal respirations, no respiratory distress appreciated Abdomen/GI: Non distended, soft Back: Normal ROM 19:21 Skin: erythema with purulent drainage noted to the left heel. 19:21 Neuro: Orientation: is normal, Mentation: is normal, Memory: is normal. 19:21 Psych: Behavior/mood is pleasant, cooperative. Vital Signs: 18:26 BP 107 / 78; Pulse 100; Resp 16 S; Temp 97.6(TE); Pulse Ox 99% on R/A; Weight 83.91 kg ca1 (R); Height 5 ft. 11 in. (180.34 cm); Pain 0/10; 18:26 Body Mass Index 25.80 (83.91 kg, 180.34 cm) ca1 MDM: 19:10 Patient medically screened. [facility] 19:35 Data reviewed: vital signs, nurses notes. Counseling: I had a detailed discussion with flori the patient and/or guardian regarding: the historical points, exam findings, and any diagnostic results supporting the discharge/admit diagnosis, the need for outpatient follow up, to return to the emergency department if symptoms worsen or persist or if there are any questions or concerns that arise at home. ED course: 6 sutures removed from the foot. 4 kimberley removed from the scalp. Administered Medications: No medications were administered Disposition: 12/27 08:20 Co-signature as Attending Physician, Joel Ronquillo MD. rn Disposition: 12/26/20 19:36 Discharged to Home. Impression: Cellulitis of the left foot, Suture removal. - Condition is Stable. - Discharge Instructions: Cellulitis, Adult, Suture Removal, Care After. - Prescriptions for Bactrim DS 800- 160 mg Oral Tablet - take 1 tablet by ORAL route every 12 hours for 10 days; 20 tablet. - Medication Reconciliation Form, Thank You Letter, Antibiotic Education, Prescription Opioid Use form. - Follow up: Private Physician; When: 2 - 3 days; Reason: Recheck today's complaints, Continuance of care, Re-evaluation by your physician. Signatures: Wai Howard PA PA [facility] Joel Ronquillo MD MD rn Smirch, Shelby, RN RN ss Gayatri Mathew RN RN ca1 Corrections: (The following items were deleted from the chart) 12/26 19:45 19:36 12/26/2020 19:36 Discharged to Home. Impression: Cellulitis of the left foot; ss Suture removal. Condition is Stable. Forms are Medication Reconciliation Form, Thank You Letter, Antibiotic Education, Prescription Opioid Use. Follow up: Private Physician; When: 2 - 3 days; Reason: Recheck today's complaints, Continuance of care, Re-evaluation by your physician. [facility]
--- NOTE | 2020-12-26 19:37 | ER ---
Nurse's Notes [facility] Name: Jesus Pitt Age: 25 yrs Sex: Male : 1995 Arrival Date: 12/26/2020 Time: 18:19 Bed 12 Private MD: Diagnosis: Cellulitis of the left foot;Suture removal Presentation: 12/26 18:26 Chief complaint: Patient states: For suture removal. Lac repair done on 12/10/2020 on ca1 back of L foot. [place] at back of head and on L side. Coronavirus screen: Client denies travel out of the [place] in the last 14 days. At this time, the client does not indicate any symptoms associated with coronavirus-19. Ebola Screen: Patient negative for fever greater than or equal to 101.5 degrees Fahrenheit, and additional compatible Ebola Virus Disease symptoms Patient denies exposure to infectious person. Patient denies travel to an Ebola-affected area in the 21 days before illness onset. No symptoms or risks identified at this time. Initial Sepsis Screen: Does the patient meet any 2 criteria? No. Patient's initial sepsis screen is negative. Does the patient have a suspected source of infection? No. Patient's initial sepsis screen is negative. Risk Assessment: Do you want to hurt yourself or someone else? Patient reports no desire to harm self or others. Onset of symptoms was December 26, 2020. 18:26 Method Of Arrival: Ambulatory ca1 18:26 Acuity: KARLA 5 ca1 Historical: - Allergies: 18:28 No Known Allergies; ca1 - Home Meds: 18:28 None [Active]; ca1 - PMHx: 18:28 ADD/ADHD; Asthma; ca1 - PSHx: 18:28 None; ca1 - Immunization history:: Last tetanus immunization: up to date Flu vaccine is not up to date. - Social history:: Smoking status: Patient reports the use of cigarette tobacco products, smokes one-half pack cigarettes per day. Screenin:36 Abuse screen: Denies threats or abuse. Denies injuries from another. Nutritional ca1 screening: No deficits noted. Tuberculosis screening: No symptoms or risk factors identified. Fall Risk None identified. Assessment: 18:36 General: Appears in no apparent distress. comfortable, Behavior is calm, cooperative, ca1 appropriate for age. Pain: Denies pain. Derm: Skin is intact, is healthy with good turgor, Skin is pink, warm \T\ dry. Wound noted left Achilles Wound is suture in place. Wound appears red, swollen with serosanguinous drainage. Musculoskeletal: Circulation, motion, and sensation intact. Capillary refill < 3 seconds. Vital Signs: 18:26 BP 107 / 78; Pulse 100; Resp 16 S; Temp 97.6(TE); Pulse Ox 99% on R/A; Weight 83.91 kg ca1 (R); Height 5 ft. 11 in. (180.34 cm); Pain 0/10; 18:26 Body Mass Index 25.80 (83.91 kg, 180.34 cm) ca1 ED Course: 18:19 Patient arrived in ED. ag5 18:28 Triage completed. ca1 18:28 Arm band placed on right wrist. [facility] 18:33 Wai Howard PA is PHCP. flori 18:33 Joel Ronquillo MD is Attending Physician. [facility] 18:35 Gayatri Mathew, ARIANA is Primary Nurse. ca1 18:36 Patient has correct armband on for positive identification. ca1 19:44 No provider procedures requiring assistance completed. Patient did not have IV access ss during this emergency room visit. Administered Medications: No medications were administered Outcome: 19:36 Discharge ordered by MD. [facility] 19:44 Discharged to home ambulatory. 19:44 Condition: good 19:44 Discharge instructions given to patient, Instructed on discharge instructions, follow up and referral plans. medication usage, Demonstrated understanding of instructions, follow-up care, medications, Prescriptions given X 1. 19:45 Patient left the ED. ss Signatures: Wai Howard PA PA jmm Smirch, Shelby, RN RN Gayatri Mathew RN RN [facility] Kamaljit Curly ag5
[2020-12-26 20:02] VITALS: BP 107/78; TEMP 97.6; O2SAT 99
== END 2020-12-26 19:45 | disposition home or self-care (01) ==
LOC: ER 18:18
DX: Z48.02 Encounter for removal of sutures (principal); L03.116 Cellulitis of left lower limb; F17.210 Nicotine dependence, cigarettes, uncomplicated
CPT/HCPCS: 99282

== ENCOUNTER 2022-01-03 12:19 | Emergency (ER) | payer SELFPAY ==
--- OUTSIDE RECORDS SUMMARY | 2022-01-03 12:22 | XMS REPORT | Continuity of Care Document ---
:1995 Author Organization [facility] t Address [address] [place] [address] Care Team Providers Name Role Phone Rachel Denise Attending Clinician Doctor Unassigned, Name Attending Clinician Unavailable Clay DUBON Attending Clinician Liberty POLANCO Attending Clinician Problems This patient has no known problems. Allergies, Adverse Reactions, Alerts Allergy Allergy Status Severity Reaction(s) Onset Inactive Treating Comm ents Source Name Type Date Date Clinician NO KNOWN Drug Active Univers ALLERGIE Class [facility] Medications This patient has no known medications. Procedures This patient has no known procedures. Encounters Start End Encounter Admission Attending Care Care Encounter Source Date/Time Date/Time Type Type Clinicians Facility Department ID 2020-10-02 2020-10-02 Outpatient R [facility] [id number] [facility] 15:20:00 15:20:00 [id number] ity [facility] 2019-07-25 2019-07-25 Emergency [facility] [id number] 15:52:54 18:06:00 Rachel Garcia [id number] [place] [id number] [place] [id number] [id number] 2019-07-25 2019-07-25 Orders Doctor GARCIA [id number] 00:00:00 00:00:00 Only UnassignedAJ [id number] [place] [facility] [phone] [id number] 2019-07-17 2019-07-17 Office [facility] [id number] 14:49:00 15:42:10 Visit Tabitha [place] [id number] [place] [id number] Professio [phone] nal 9 Building 2019-07-17 2019-07-17 Letter [facility] [id number] 00:00:00 00:00:00 (Out) [facility] [id number] [place] [id number] Professio [phone] [place] [address] Office [address] 2019-07-17 2019-07-17 Letter [facility] [id number] 00:00:00 00:00:00 (Out) [facility] [id number] [place] [id number] Professio [phone] [place] [address] Office [address] 2019-07-16 2019-07-16 Office [facility] [id number] 13:38:45 14:29:22 Visit [facility] [id number] [place] [id number] Professio [phone] [place] [address] Office [address] 2019-07-16 2019-07-16 Telephone [facility] [id number] 00:00:00 00:00:00 [facility] [id number] Surgical [id number] Specialti [phone] [address] [place] Results This patient has no known results.
--- NOTE | 2022-01-03 14:17 | RAD REPORT ---
EXAM DESCRIPTION: RAD - Forearm Right - 01/03/2022 2:05 pm CLINICAL HISTORY: PAIN COMPARISON: No comparisonsnone FINDINGS: No fracture is identified. There is no dislocation or periosteal reaction noted. Soft tissue contusion or edema changes posterior mid forearm. No foreign body or air in the soft tiss ues. IMPRESSION: Posterior soft tissue contusion or edema. No foreign body. No acute bone finding.
--- NOTE | 2022-01-03 14:23 | RAD REPORT ---
EXAM DESCRIPTION: RAD - Hand Left 3 View - 01/03/2022 2:05 pm CLINICAL HISTORY: PAINand swelling COMPARISON: None. FINDINGS: There is a nondisplaced fracture involving the ventral base of the middle phalanx believed to be the second middle phalanx. This involves the articular surface. Correlation can be made with p oint tenderness at the second PIP joint ventral surface. No other fracture or acute bone finding identifiable. No foreign body in the soft tissues. IMPRESSION: Nondisplaced fracture base of the middle phalanx believed be the second middle phalanx. This can be correlated with point tenderness ventral margin second PIP joint.
--- NOTE | 2022-01-03 14:47 | EDPHYS ---
Physician Documentation [facility] Name: Jesus Pitt Age: 26 yrs Sex: Male : 1995 Arrival Date: 01/03/2022 Time: 12:31 Bed 26 Private MD: ED Physician Altagracia Renteria HPI: 01/03 13:34 This 26 yrs old Male presents to ER via EMS with complaints of HAND PAIN. ma2 13:34 Patient got arrested by police, here with handcuffs on has right forearm abrasion, ma2 patient complains of left hand pain and right forearm pain, constant for 1 hour mild unchanged. Historical: - Allergies: 12:35 No Known Allergies; lr4 - Home Meds: 12:35 Albuterol Inhl 2 puffs every 4-6 hours for acute asthma attack [Active]; lr4 - PMHx: 12:35 Asthma; ADD/ADHD; Anxiety; lr4 - Immunization history:: Adult Immunizations not up to date. - Social history:: Smoking status: Patient reports the use of cigarette tobacco products, smokes one-half pack cigarettes per day. - Family history:: not pertinent. ROS: 13:34 Constitutional: Negative for fever, chills, and weight loss. ma2 13:34 All other systems are negative. Exam: 13:34 Constitutional: This is a well developed, well nourished patient who is awake, alert, ma2 and in no acute distress. Chest/axilla: Normal chest wall appearance and motion. Nontender with no deformity. No lesions are appreciated. Cardiovascular: Regular rate and rhythm with a normal S1 and S2. No gallops, murmurs, or rubs. Normal PMI, no JVD. No pulse deficits. Respiratory: Lungs have equal breath sounds bilaterally, clear to auscultation and percussion. No rales, rhonchi or wheezes noted. No increased work of breathing, no retractions or nasal flaring. Abdomen/GI: Soft, non-tender, with normal bowel sounds. No distension or tympany. No guarding or rebound. No evidence of tenderness throughout. Back: No spinal tenderness. No costovertebral tenderness. Full range of motion. Skin: Warm, dry with normal turgor. Normal color with no rashes, no lesions, and no evidence of cellulitis. MS/ Extremity: Left hand contusion, and right forearm abrasion small 2 x 1 inch, superficial, all joints with full range of motion, no tenderness over snuffbox, no point tenderness pulses equal, no cyanosis. Neurovascular intact. Full, normal range of motion. Neuro: Awake and alert, GCS 15, oriented to person, place, time, and situation. Cranial nerves II-XII grossly intact. Motor strength 5/5 in all extremities. Sensory grossly intact. Cerebellar exam normal. Normal gait. Vital Signs: 12:31 BP 98 / 71; Pulse 78; Resp 16; Temp 98.2; Pulse Ox 100% on R/A; Weight 72.57 kg; Height lr4 5 ft. 11 in. (180.34 cm); Pain 5/10; 14:54 BP 103 / 64; Pulse 87; Resp 18; Pulse Ox 98% on R/A; lr4 12:31 Body Mass Index 22.32 (72.57 kg, 180.34 cm) lr4 MDM: 12:31 Patient medically screened. ma2 13:34 Differential diagnosis: DJD, tendonitis, Contusion versus fracture. Data reviewed: ma2 vital signs, nurses notes. Counseling: I had a detailed discussion with the patient and/or guardian regarding: the historical points, exam findings, and any diagnostic results supporting the discharge/admit diagnosis, the presence of at least one elevated blood pressure reading (>120/80) during this emergency department visit, the need for outpatient follow up. Response to treatment: the patient's symptoms have markedly improved after treatment. 01/03 13:22 Order name: Forearm Right XRAY; Complete Time: 14:21 ma2 01/03 13:22 Order name: Hand Left 3 View XRAY; Complete Time: 14:40 ma2 Administered Medications: No medications were administered Disposition Summary: 01/03/22 14:46 Discharge Ordered Location: Home ma2 Condition: Stable ma2 Diagnosis - Contusion of hand ma2 - Contusion of left hand ma2 - Nondisplaced fracture of distal phalanx of left middle finger - middle phalanx ma2 Followup: ma2 - With: Private Physician - When: Tomorrow - Reason: If symptoms return Discharge Instructions: - Discharge Summary Sheet ma2 - Hand Contusion ma2 - Finger Fracture, Adult, Smhy-ma-Bnci ma2 Forms: - Medication Reconciliation Form ma2 - Thank You Letter ma2 - Antibiotic Education ma2 - Prescription Opioid Use ma2 Prescriptions: - ketorolac 10 mg Oral tablet - take 1 tablet by ORAL route every 4-6 hours not to exceed 40mg in 24hrs for up ma2 to 5 days total use; 30 tablet; Refills: 0, Product Selection Permitted Signatures: Dispatcher [employer] EDAltagracia Boyce MD MD ma2 Amada Ramos RN RN lr4
--- NOTE | 2022-01-03 14:47 | ER ---
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 Coronavirus screen: Vaccine status: Patient reports being unvaccinated. Client denies travel out of the [place] in the last 14 days. At this time, the client does not indicate any symptoms associated with coronavirus-19. Ebola Screen: Patient negative for fever greater than or equal to 101.5 degrees Fahrenheit, and additional compatible Ebola Virus Disease symptoms. Initial Sepsis Screen: Does the patient meet any 2 criteria? No. Patient's initial sepsis screen is negative. Does the patient have a suspected source of infection? No. Patient's initial sepsis screen is negative. Risk Assessment: Do you want to hurt yourself or someone else? Patient reports no desire to harm self or others. Onset of symptoms was January 03, 2022. 12:31 Method Of Arrival: EMS: [facility] lr4 12:31 Acuity: KARLA 4 lr4 Triage Assessment: 12:35 General: Appears in no apparent distress. comfortable, Behavior is calm, cooperative. lr4 Pain: Complains of pain in left index finger Pain does not radiate. Pain currently is 5 out of 10 on a pain scale. Quality of pain is described as throbbing, Pain began suddenly, 1 hour ago. Is continuous. Neuro: No deficits noted. Cardiovascular: No deficits noted. Respiratory: No deficits noted. Injury Description: Abrasion sustained to right posterior forearm is reddened approx 2 inches in length swelling and redness to L index finger, decreased ROM. Historical: - Allergies: 12:35 No Known Allergies; lr4 - Home Meds: 12:35 Albuterol Inhl 2 puffs every 4-6 hours for acute asthma attack [Active]; lr4 - PMHx: 12:35 Asthma; ADD/ADHD; Anxiety; lr4 - Immunization history:: Adult Immunizations not up to date. - Social history:: Smoking status: Patient reports the use of cigarette tobacco products, smokes one-half pack cigarettes per day. - Family history:: not pertinent. Screenin:45 Abuse screen: Denies threats or abuse. Nutritional screening: No deficits noted. lr4 Tuberculosis screening: No symptoms or risk factors identified. Fall Risk None identified. Assessment: 12:44 Visitor restriction implemented due to in-person visitations may lead to the lr4 transmission of an infectious agent. Restricted visitation is valid for not more than 5 days unless renewed by the attending provider. police at bedside. General: Appears in no apparent distress. comfortable, Behavior is calm, cooperative. Pain: Complains of pain in Left index finger Pain currently is 5 out of 10 on a pain scale. Quality of pain is described as throbbing. Neuro: No deficits noted. Cardiovascular: No deficits noted. Respiratory: No deficits noted. 14:54 Reassessment: Patient states feeling better. splint applied by [address]. Pt departed ed lr4 ambulatory with police and all personal effects. Vital Signs: 12:31 BP 98 / 71; Pulse 78; Resp 16; Temp 98.2; Pulse Ox 100% on R/A; Weight 72.57 kg; Height lr4 5 ft. 11 in. (180.34 cm); Pain 5/10; 14:54 BP 103 / 64; Pulse 87; Resp 18; Pulse Ox 98% on R/A; lr4 12:31 Body Mass Index 22.32 (72.57 kg, 180.34 cm) lr4 ED Course: 12:31 Patient arrived in ED. lr4 12:31 Altagracia Renteria MD is Attending Physician. ma2 12:31 Amada Ramos RN is Primary Nurse. lr4 12:35 Triage completed. lr4 12:46 Arm band placed on right wrist. lr4 12:46 Patient has correct armband on for positive identification. Bed in low position. Call lr4 light in reach. Adult w/ patient. Door closed. Noise minimized. 12:46 No provider procedures requiring assistance completed. lr4 14:05 Forearm Right XRAY In Process Unspecified. EDMS 14:05 Hand Left 3 View XRAY In Process Unspecified. EDMS 14:55 Patient did not have IV access during this emergency room visit. lr4 15:03 Dressings: right FA abrasion cleaned with sterile water, pat dry, applied triple abx ss7 ointment and covered with 2x2 and coban. finger splint applied to the 2nd phalanx of the left hand.Secured with terry. Pt tolerated well. Administered Medications: No medications were administered Outcome: 12:46 Condition: good lr4 14:46 Discharge ordered by . ma2 14:55 Discharge instructions given to patient, police. lr4 14:55 Discharged to Law Enforcement lr4 15:07 Patient left the ED. lr4 Signatures: Dispatcher [employer] EDND Altagracia Renteria MD MD ma2 Juana Lee RN RN ss7 Amada Ramos RN RN lr4
[2022-01-03 15:14] VITALS: TEMP 98.2
[2022-01-03 15:16] VITALS: BP 103/64; O2SAT 98
== END 2022-01-03 15:07 | disposition home or self-care (01) ==
LOC: ER 12:19
DX: S62.663A Nondisplaced fracture of distal phalanx of left middle finger, initial encounter for closed fracture (principal); S60.222A Contusion of left hand, initial encounter; F17.210 Nicotine dependence, cigarettes, uncomplicated; J45.909 Unspecified asthma, uncomplicated
CPT/HCPCS: 99283

== ENCOUNTER 2023-05-14 03:10 | Emergency (ER) | payer SELFPAY ==
[2023-05-14 04:30] LABS: Absolute Lymphocytes (CBC) 3.2 K/uL (0.7-4.9); MPV 7.1 fL (7.6-11.3)
[2023-05-14 04:54] LABS: Hematocrit 46.5 % (39.6-49.0); Lymphocytes % 47.2 % (15.3-44.8); MCV 84.2 fL (80-100); RBC Red Blood Cell Count 5.53 M/uL (4.33-5.43)
[2023-05-14 05:01] LABS: Protime INR 1.19
[2023-05-14 05:20] LABS: ALT/SGPT 23 U/L (16-61); AST/SGOT 19 U/L (15-37); Albumin 3.7 g/dL (3.4-5.0); Alkaline Phosphatase 124 U/L (45-117); BUN Blood Urea Nitrogen 8 mg/dL (7-18); Bicarbonate 27 mEq/L (21-32); Bilirubin Direct 0.1 mg/dL (0-0.2); Bilirubin Indirect, Calculated 0.6 mg/dL (0.2-0.8); Bilirubin Total 0.7 mg/dL (0.2-1.0); Glomerular Filtration Rate 84 ml/min (=/>90); Glucose Level 88 mg/dL (74-106); Potassium 3.4 mEq/L (3.5-5.1); Protein, Total 7.5 g/dL (6.4-8.2); Sodium Level 138 mEq/L (136-145)
--- NOTE | 2023-05-14 05:26 | EDPHYS ---
Physician Documentation [facility] Name: Jesus Pitt Age: 27 yrs Sex: Male : 1995 Arrival Date: 05/14/2023 Time: 03:10 Bed 17 Private MD: ED Physician Akbar Leblanc HPI: 05/14 08:09 This 27 yrs old Male presents to ER via Law [employer] with complaints of kdr Psych Problem. 08:09 Patient is brought to the emergency department by [facility] department. kdr Patient explains that he was in a argument with a former girlfriend's parents. They were standing away of him seeing her further. He became frustrated and and an act of frustration cut his right forearm multiple times superficially with a knife. Patient has done this previously but has been many years ago. Patient denies suicidal or homicidal intention. Patient is otherwise stable. Patient is rational and has been able to explain the situation between his former girlfriend and her parents. Patient states he is moving on at this point and has no further intention to hurt himself or any others.. Onset: The symptoms/episode began/occurred suddenly, just prior to arrival. Severity of symptoms: At their worst the symptoms were mild in the emergency department the symptoms have resolved. The patient has experienced similar episodes in the past, a few times. The patient has not recently seen a physician. Historical: - Allergies: 03:11 No Known Allergies; pf1 - PMHx: 03:11 ADD/ADHD; Anxiety; Asthma; pf1 - PSHx: 03:11 None; pf1 - Immunization history:: Adult Immunizations up to date, Client reports having NOT received the Covid vaccine. Last tetanus immunization: < 10 years ago. - Social history:: Smoking status: Patient reports the use of cigarette tobacco products, smokes one pack cigarettes per day. Patient/guardian denies using alcohol, street drugs. ROS: 08:09 Constitutional: Negative for fever, chills, and weight loss, Eyes: Negative for injury, kdr pain, redness, and discharge, ENT: Negative for injury, pain, and discharge, Neck: Negative for injury, pain, and swelling, Cardiovascular: Negative for chest pain, palpitations, and edema, Respiratory: Negative for shortness of breath, cough, wheezing, and pleuritic chest pain, Abdomen/GI: Negative for abdominal pain, nausea, vomiting, diarrhea, and constipation, Back: Negative for injury and pain, : Negative for injury, bleeding, discharge, and swelling, MS/Extremity: Negative for injury and deformity, Skin: Negative for injury, rash, and discoloration, Neuro: Negative for headache, weakness, numbness, tingling, and seizure activity. Allergy/Immunology: Negative for hives, rash, and allergies, Endocrine: Negative for neck swelling, polydipsia, polyuria, polyphagia, and marked weight changes, Hematologic/Lymphatic: Negative for swollen nodes, abnormal bleeding, and unusual bruising. 08:09 Psych: Positive for ADHD and impulse behavior issues, Negative for drug dependence, alcohol dependence, auditory hallucinations, visual hallucinations, homicidal ideation, suicide gesture, suicidal ideation. Exam: 08:09 Constitutional: This is a well developed, well nourished patient who is awake, alert, kdr and in no acute distress. Head/Face: Normocephalic, atraumatic. Eyes: Pupils equal round and reactive to light, extra-ocular motions intact. Lids and lashes normal. Conjunctiva and sclera are non-icteric and not injected. Cornea within normal limits. Periorbital areas with no swelling, redness, or edema. Neck: Trachea midline, no thyromegaly or masses palpated, and no cervical lymphadenopathy. Supple, full range of motion without nuchal rigidity, or vertebral point tenderness. No Meningismus. Chest/axilla: Normal chest wall appearance and motion. Nontender with no deformity. No lesions are appreciated. MS/ Extremity: Pulses equal, no cyanosis. Neurovascular intact. Full, normal range of motion. Neuro: Awake and alert, GCS 15, oriented to person, place, time, and situation. Cranial nerves II-XII grossly intact. Motor strength 5/5 in all extremities. Sensory grossly intact. Cerebellar exam normal. Normal gait. Psych: Awake, alert, with orientation to person, place and time. Behavior, mood, and affect are within normal limits. Vital Signs: 03:11 BP 107 / 72; Pulse 84; Resp 16; Temp 98.1; Pulse Ox 99% on R/A; Weight 74.84 kg; Height pf1 5 ft. 11 in. ; Pain 0/10; 05:32 BP 115 / 78; Pulse 90; Resp 15; Pulse Ox 100% on R/A; 5 03:11 Body Mass Index 23.01 (74.84 kg, 180.34 cm) pf1 03:11 Pain Scale: Adult pf1 MDM: 05:25 Patient medically screened. [facility] 08:09 Data reviewed: vital signs, nurses notes, lab test result(s), radiologic studies. kdr 05/14 04:01 Order name: Acetaminophen [facility] 05/14 04:01 Order name: Basic Metabolic Panel [facility] 05/14 04:01 Order name: CBC with Diff [facility] 05/14 04:01 Order name: ETOH Level [facility] 05/14 04:01 Order name: Hepatic Function [facility] 05/14 04:01 Order name: PT-INR [facility] 05/14 04:01 Order name: Ptt, Activated [facility] 05/14 04:01 Order name: Salicylate [facility] 05/14 04:01 Order name: Urine Drug Screen [facility] 05/14 04:01 Order name: EKG; Complete Time: 04:02 [facility] 05/14 04:42 Order name: Diet Finger Food; Complete Time: 04:42 [facility] 05/14 04:01 Order name: EKG - Nurse/Tech; Complete Time: 04:01 [facility] 05/14 04:01 Order name: IV Saline Lock; Complete Time: 04:01 [facility] 05/14 04:01 Order name: Labs collected and sent; Complete Time: 04:01 [facility] 05/14 04:01 Order name: Suicide Screening (Standard); Complete Time: 04:01 [facility] Administered Medications: No medications were administered Disposition Summary: 05/14/23 05:25 Discharge Ordered Location: Home kdr Problem: new kdr Symptoms: are resolved kdr Condition: Stable kdr Diagnosis - Attention-deficit hyperactivity disorder, unspecified type kdr - Attention seeking behavior kdr Followup: kdr - With: Private Physician - When: 2 - 3 days - Reason: If symptoms return, Further diagnostic work-up, Recheck today's complaints, Continuance of care, Re-evaluation by your physician Discharge Instructions: - Discharge Summary Sheet kdr - Attention Deficit Hyperactivity Disorder, Adult kdr Forms: - Medication Reconciliation Form kdr - Thank You Letter kdr - [email or web address] kdr Signatures: Dispatcher [employer] EDMA Akbar Leblanc MD MD kdr Emma Case RN RN pf1 Nilam Monk 5
--- NOTE | 2023-05-14 05:26 | ER ---
Nurse's Notes [facility] Name: Jesus Pitt Age: 27 yrs Sex: Male : 1995 Arrival Date: 05/14/2023 Time: 03:10 Bed 17 Private MD: Diagnosis: Attention-deficit hyperactivity disorder, unspecified type;Attention seeking behavior Presentation: 05/14 03:11 Chief complaint: Patient states: Patient arrived per [place] with [address] Department with an AUGUSTO in place. Patient C/O approximately 9 superifical lacerations to right forearm with a kitchen knife,onset 0000 tonight, S/P after getting into an argument with patient's ex-girlfriends family members. Patient denies any SI or HI ideations. Patient stated 1 month ago mom got sick with sepsis, dealing with a lot of stress at home and in the same week is girlfriend cheated on him with her baby's daddy, then broke up with the patient without telling him. Patient stated ex-girlfriend told patient recently that she misses and loves him, but her family wants him to stay away from her. Patient stated earlier phillip was texting her family to be able to talk to his ex-girlfriend, they refused so he sent a picture of his lacerations to right forearm. Patient stated was picked up by [employer] department after the photo was sent of the lacerations. 03:11 Coronavirus screen: Vaccine status: Patient reports being unvaccinated. Client denies 1 travel out of the [place] in the last 14 days. At this time, the client does not indicate any symptoms associated with coronavirus-19. Ebola Screen: Patient negative for fever greater than or equal to 101.5 degrees Fahrenheit, and additional compatible Ebola Virus Disease symptoms. Initial Sepsis Screen: Does the patient meet any 2 criteria? No. Patient's initial sepsis screen is negative. Does the patient have a suspected source of infection? No. Patient's initial sepsis screen is negative. Risk Assessment: Do you want to hurt yourself or someone else? Patient reports no desire to harm self or others. 03:11 Method Of Arrival: Law Enforcement: [place] [id number] 03:11 Acuity: KARLA 3 pf1 Triage Assessment: 03:11 General: Appears in no apparent distress. Behavior is calm, cooperative. Derm: Wound vc1 noted palmar aspect of right forearm. Historical: - Allergies: 03:11 No Known Allergies; pf1 - PMHx: 03:11 ADD/ADHD; Anxiety; Asthma; pf1 - PSHx: 03:11 None; pf1 - Immunization history:: Adult Immunizations up to date, Client reports having NOT received the Covid vaccine. Last tetanus immunization: < 10 years ago. - Social history:: Smoking status: Patient reports the use of cigarette tobacco products, smokes one pack cigarettes per day. Patient/guardian denies using alcohol, street drugs. Screenin:11 [facility] ED Fall Risk Assessment (Adult) History of falling in the last 3 months, vc1 including since admission No falls in past 3 months (0 pts) Confusion or Disorientation No (0 pts) Intoxicated or Sedated No (0 pts) Impaired Gait No (0 pts) Mobility Assist Device Used No (0 pt) Altered Elimination No (0 pt) Score/Fall Risk Level 0 - 2 = Low Risk Oriented to surroundings, Maintained a safe environment, Educated pt \\T\\ family on fall prevention, incl call for assistance when getting out of bed. Abuse screen: Denies threats or abuse. Nutritional screening: No deficits noted. Tuberculosis screening: No symptoms or risk factors identified. Assessment: 04:00 Reassessment: Patient and/or family updated on plan of care and expected duration. Pain vc1 level reassessed. Patient is alert, oriented x 3, equal unlabored respirations, skin warm/dry/pink. Patient states feeling better. Patient states symptoms have improved. 05:00 Reassessment: No changes from previously documented assessment. Patient and/or family vc1 updated on plan of care and expected duration. Pain level reassessed. Patient is alert, oriented x 3, equal unlabored respirations, skin warm/dry/pink. 06:00 Reassessment: No changes from previously documented assessment. Patient and/or family vc1 updated on plan of care and expected duration. Pain level reassessed. Patient is alert, oriented x 3, equal unlabored respirations, skin warm/dry/pink. 06:00 Pain: Complains of pain in palmar aspect of right forearm. Derm: Wound noted palmar vc1 aspect of right forearm. Psych: 03:11 [place] Suicide Severity Screening: In the past month, have you wished you were vc1 or wished you could go to sleep and not wake up? Patient responds "No." "In the past month, have you actually had any thoughts of killing yourself?" Patient responds "no." "In your lifetime, have you ever done anything, started to do anything, or prepared to do anything to end your life?" Patient responds "no.". Subjective:. Objective: Patient is cooperative, Speech is loud, Speaking fast Affect is appropriate, Patient has mutilated themselves by making multiple cuts in right forearm. Interventions: Removed personal items and placed in bag. Patient placed in hospital gown. Searched person for dangerous items. Urine collected and sent for urine drug test. Belonging list filled out. Safety Checks: Personal items have been removed. Door is open. No visitors are present at this time. Pt denies substance abuse. 03:11 Commitment: Patient will be an involuntary commitment. Commitment papers completed. vc1 Vital Signs: 03:11 BP 107 / 72; Pulse 84; Resp 16; Temp 98.1; Pulse Ox 99% on R/A; Weight 74.84 kg; Height pf1 5 ft. 11 in. ; Pain 0/10; 05:32 BP 115 / 78; Pulse 90; Resp 15; Pulse Ox 100% on R/A; mc5 03:11 Body Mass Index 23.01 (74.84 kg, 180.34 cm) pf1 03:11 Pain Scale: Adult pf1 ED Course: 03:11 Patient arrived in ED. rv1 03:11 Arm band placed on right wrist. vc1 03:13 Akbar Leblanc MD is Attending Physician. kdr 03:51 EKG done, by ED staff, reviewed by Akbar Leblanc MD. mc5 04:01 Inserted saline lock: 20 gauge in right antecubital area, using aseptic technique. mc5 Blood collected. 04:33 Kary Brock, ARIANA is Primary Nurse. vc1 05:13 Urine collected: clean catch specimen, clear, tea colored, Amount Voided: 40mL. mc5 05:38 Triage completed. pf1 06:28 No provider procedures requiring assistance completed. IV discontinued, intact, vc1 bleeding controlled, No redness/swelling at site. Pressure dressing applied. 06:30 Patient has correct armband on for positive identification. Bed in low position. Call vc1 light in reach. Patient is placed in psych hold. Administered Medications: No medications were administered Medication: 06:28 VIS not applicable for this client. vc1 Outcome: 05:25 Discharge ordered by . kdr 06:30 Discharged to home ambulatory. vc1 06:30 Condition: good 06:30 Discharge instructions given to patient, Instructed on discharge instructions, follow up and referral plans. Demonstrated understanding of instructions, follow-up care. 06:31 Patient left the ED. vc1 Signatures: Akbar Leblanc MD MD kdr Kary Brock RN RN vc1 Emma Case RN RN pf1 Carolee Vallecillo 1 Nilam Monk 5
[2023-05-14 05:47] LABS: Barbiturates NEGATIVE (NEGATIVE); Benzodiazepines NEGATIVE (NEGATIVE); Cocaine NEGATIVE (NEGATIVE); METHAMPHETAM POSITIVE (NEGATIVE); Methadone NEGATIVE (NEGATIVE); Opiates NEGATIVE (NEGATIVE); Phencyclidine NEGATIVE (NEGATIVE); THC Cannibis NEGATIVE (NEGATIVE)
--- NOTE | 2023-05-14 17:10 | EKG ---
Test Date: 2023-05-14 Test Time: 03:48:42 [employer] Grade Teacher: FRANCISCO MEASUREMENT RESULTS: Intervals: Rate: 82 OR: 124 QRSD: 94 QT: 354 QTc: 413 Wideman: P: 72 OR: 124 QRS: 85 T: 78 INTERPRETIVE STATEMENTS: Normal sinus rhythm Normal ECG No previous ECG available for comparison Electronically Signed On 05-14-23 17:09:32 CDT by Obed Romero
== END 2023-05-14 06:31 | disposition home or self-care (01) ==
LOC: ER 03:10
DX: F91.8 Other conduct disorders (principal); F90.1 Attention-deficit hyperactivity disorder, predominantly hyperactive type
CPT/HCPCS: 36415; 80048; 80076; 80143; 80179; 80307; 82077; 85025; 85610; 85730; 93005; 99284

== ENCOUNTER 2024-11-15 08:40 | Emergency (ER) | payer OTHER ==
--- OUTSIDE RECORDS SUMMARY | 2024-11-15 08:44 | XMS REPORT | Continuity of Care Document ---
Author Name Unknown Address [address] [facility] [address] [place] [address] [facility] thconnect Address [address] [place] [address] Care Team Providers Care Hydro Pneumatic Tester Name Role Phone Katherine Osborne Primary Care Physician [phone]- [phone] Katherine Osborne Attending Clinician [phone] Piotr Denise Attending Clinician [phone] Doctor Unassigned, Amado Attending Clinician U christiano Williamson MD, Tabitha Attending Clinician [phone] Payers Payer Name Policy Type Policy Number Effective Date Expirati on Date Source Problems Condition Name Condition Details Condition Category Status Onset Date Resolution Date Last Treatment Date Treating Clinician Comments Source Foot pain, right Foot pain, right Disease Active 2014-11 00:00: 00 [facility] Metacarpal bone fracture Metacarpal bone fracture Disease Active 2014-11 005 00:00: 00 [facility] Allergies, Adverse Reactions, Alerts Allergy Name Allergy Type Status Severity Reaction(s) Onset Date Inactive Date Treating Clinician Comments Source NO KNOWN ALLERGIE S Drug Class Active [facility] Social History Social Habit Start Date Stop Date Quantity Comments Source Sexual orientation [facility] History of tobacco use Occasional tobacco smoker [facility] Alcohol intake 2021-01-02 00:00:00 2021-01-02 00:00:00 0 /d [facility] History of Social function 2020-06-09 00:00:00 2020-06-09 00:00:00 [facility] Tobacco use and exposure 2019-07-16 00:00:00 2019-07-16 00:00:00 Smokeless tobacco non-user [facility] Tobacco Comment 2019-07-16 00:00:00 2019-07-16 00:00:00 trying quit- smokes a cigarette daily. Was vaping, quit 1.5 weeks ago [facility] Sex Assigned At 1995 00:00:00 1995 00:00:00 [facility] Smoking Status Start Date Stop Date Source Occasional tobacco smoker 2019-07-16 00:00:00 [facility] Medications Ordered Medication Name Filled Medication Name Start Date Stop Date Current Medication? Ordering Clinician Indication Dosage Frequency Signature (SIG) Comments Components Source ibuprofen 600 mg tablet 07-25 00:00: 00 Yes [id number] 600mg Take 1 tablet by mouth every 6 (six) hours as needed for Pain (scale 4-6). [facility] benzonatate 100 mg capsule 07-25 00:00: 00 Yes [id number] 100mg Take 1 capsule by mouth 3 (three) times daily as needed for Cough. [facility] ondansetron (ZOFRAN ODT) 4 mg disintegrat ing tablet 07-25 00:00: 00 Yes [id number] 4mg Take 1 tablet by mouth every 8 (eight) hours as needed for Nausea and Vomiting (N/V). [facility] DM/pseudoep hed/acetami noph/cpm (FLU, COLD & COUGH MEDICINE ORAL) 07-17 15:20: 35 Yes Take by mouth as needed. [facility] Encounters Start Date/Time End Date/Time Encounter Type Admission Type Attending Clinicians Care Facility Care Department Encounter ID Source 2021-02-03 00:00:00 2021-02-03 00:00:00 Patient Secure Katherine Lao [facility] [id number] [facility] 2019-07-25 15:52:54 2019-07-25 18:06:00 Emergency Piotr Borges [facility] [id number] 2019-07-25 00:00:00 2019-07-25 00:00:00 Orders Only Doctor Unassigned, Amado [facility] [id number] 2019-07-17 14:49:00 2019-07-17 15:42:[address] [facility] [id number] 2019-07-17 00:00:00 2019-07-17 00:00:00 [facility] [id number] 2019-07-17 00:00:00 2019-07-17 00:00:00 [facility] ([facility] [id number] 2019-07-16 13:38:45 2019-07-16 14:29:22 Office Visit [facility], [facility] Office Building One [id number] 2019-07-16 00:00:00 2019-07-16 00:00:00 [facility] [id number]
[2024-11-15] MEDS ORDERED: KETOROLAC 30 MG/ML INJ ONE (09:09)
[2024-11-15] MEDS ORDERED: HYDROCODONE/APAP 5/325 MG TAB ONE (09:10)
--- NOTE | 2024-11-15 09:51 | RAD REPORT ---
EXAM: CT Head Brain Wo Cont HISTORY: HEADACHE COMPARISON: 01/08/2024 TECHNIQUE: Multiple contiguous axial images were obtained for a CT of the brain without contrast. Sag ittal and coronal reformats were performed. One or more of the following dose reduction techniques were used: Automated exposure control, adjus tment of the mA and kV according to patient size, and iterative reconstruction. Unless otherwise specified, incidental findings do not require dedicated imaging follow-up. FINDINGS: No evidence of hydrocephalus, intracranial hemorrhage, or extra-axial fluid collection. The brain is normal in morphology. The calvarium is intact. The visualized paranasal sinuses and mastoid air cells are essentially clear . IMPRESSION: No evidence of acute intracranial abnormality.
--- NOTE | 2024-11-15 09:57 | EDPHYS ---
Physician Documentation [facility] Name: Jesus Pitt Age: 28 yrs Sex: Male : 1995 Arrival Date: 11/15/2024 Time: 08:40 Bed 14 Private MD: ED Physician Markell Garcia HPI: 11/15 09:54 This 28 yrs old Male presents to ER via Ambulatory with complaints of Facial sp3 pain, Headache. 09:54 28-year-old male with history of ADHD, anxiety now presents to the ED with chief sp3 complaint headache Onset where he feels like his "head is in a vice". He took a "pain pill" prior to arrival which she states has not helped significantly. He denies any trauma, fever, known sick contacts, travel history, neck stiffness or neck pain, chest pain, shortness of breath, URI symptoms, syncope, near syncope, speech changes, other neurological complaints including weakness or motor dysfunction, or any other signs or symptoms on ROS at this time.. Historical: - Allergies: 08:50 No Known Allergies; iw - PMHx: 08:50 ADD/ADHD; Anxiety; Asthma; iw - PSHx: 08:50 None; iw - Immunization history:: Adult Immunizations not up to date. - Infectious Disease History:: Denies. - Social history:: Smoking status: Patient reports the use of cigarette tobacco products, smokes one-half pack cigarettes per day. ROS: 09:55 Constitutional: Negative for fever, chills, and weight loss, Eyes: Negative for injury, sp3 pain, redness, and discharge, ENT: Negative for injury, pain, and discharge, Neck: Negative for injury, pain, and swelling, Cardiovascular: Negative for chest pain, palpitations, and edema, Respiratory: Negative for shortness of breath, cough, wheezing, and pleuritic chest pain, Abdomen/GI: Negative for abdominal pain, nausea, vomiting, diarrhea, and constipation, Back: Negative for injury and pain, MS/Extremity: Negative for injury and deformity, Skin: Negative for injury, rash, and discoloration, Psych: Negative for depression, anxiety, suicide ideation, homicidal ideation, and hallucinations, Allergy/Immunology: Negative for hives, rash, and allergies, Endocrine: Negative for neck swelling, polydipsia, polyuria, polyphagia, and marked weight changes, Hematologic/Lymphatic: Negative for swollen nodes, abnormal bleeding, and unusual bruising, 09:55 All other systems are negative, Exam: 09:55 Constitutional: This is a well developed, well nourished patient who is awake, alert, sp3 and in no acute distress. Head/Face: Normocephalic, atraumatic. Eyes: Pupils equal round and reactive to light, extra-ocular motions intact. Lids and lashes normal. Conjunctiva and sclera are non-icteric and not injected. Cornea within normal limits. Periorbital areas with no swelling, redness, or edema. ENT: Nares patent. No nasal discharge, no septal abnormalities noted. External auditory canals are clear. Oropharynx with no redness, swelling, or masses, exudates, or evidence of obstruction, uvula midline. Mucous membranes moist. Neck: Trachea midline, no thyromegaly or masses palpated, and no cervical lymphadenopathy. Supple, full range of motion without nuchal rigidity, or vertebral point tenderness. No Meningismus. Chest/axilla: Normal chest wall appearance and motion. Nontender with no deformity. No lesions are appreciated. Cardiovascular: Regular rate and rhythm with a normal S1 and S2. No gallops, murmurs, or rubs. Normal PMI, no JVD. No pulse deficits. Respiratory: Lungs have equal breath sounds bilaterally, clear to auscultation and percussion. No rales, rhonchi or wheezes noted. No increased work of breathing, no retractions or nasal flaring. Abdomen/GI: Soft, non-tender, with normal bowel sounds. No distension or tympany. No guarding or rebound. No evidence of tenderness throughout. Back: No spinal tenderness. No costovertebral tenderness. Full range of motion. Skin: Warm, dry with normal turgor. Normal color with no rashes, no lesions, and no evidence of cellulitis. MS/ Extremity: Pulses equal, no cyanosis. Neurovascular intact. Full, normal range of motion. Neuro: Awake and alert, GCS 15, oriented to person, place, time, and situation. Cranial nerves II-XII grossly intact. Motor strength 5/5 in all extremities. Sensory grossly intact. Cerebellar exam normal. Normal gait. Psych: Awake, alert, with orientation to person, place and time. Behavior, mood, and affect are within normal limits. Vital Signs: 08:48 BP 139 / 86; Pulse 84; Resp 16; Temp 98.2; Pulse Ox 100% on R/A; Weight 74.84 kg; iw Height 5 ft. 11 in. ; Pain 10/10; 09:55 BP 127 / 79; Pulse 77; Resp 17; Pulse Ox 99% on R/A; rs5 10:00 BP 117 / 74; Pulse 70; Resp 17; Pulse Ox 98% on R/A; rs5 08:48 Body Mass Index 23.01 (74.84 kg, 180.34 cm) iw 08:48 Pain Scale: Adult iw MDM: 08:50 Medical Screening Exam initiated sp3 09:55 Data reviewed: vital signs, nurses notes, radiologic studies. ED course: 28-year-old sp3 male with new onset headache. Differential diagnosis includes idiopathic headache, migraine headache, and to lesser degree other intracranial pathology including bleed or mass. Workup included CT scan of the head which is normal. P.o. [place] and IM ketorolac also given to which patient has had improvement. Will discharge patient home on diclofenac p.o. and follow-up to neurology as needed.. 11/15 09:00 Order name: CT Head Brain wo Cont; Complete Time: 09:54 sp3 Administered Medications: 09:15 Drug: HYDROcodone-acetaminophen PO 5 mg-325 mg 2 tabs PO once Route: PO; rs5 10:00 Follow up: Response: No adverse reaction; Pain is decreased rs5 09:15 Drug: Ketorolac IM 30 mg IM once Route: IM; Site: left deltoid; rs5 09:35 Follow up: Response: No adverse reaction; Pain is decreased rs5 Disposition Summary: 11/15/24 09:57 Discharge Ordered Notes: Location: Home sp3 Condition: Stable sp3 Diagnosis - Headache sp3 Followup: sp3 - With: Jay Fisher MD - When: Upon discharge from the Emergency Department - Reason: Recheck today's complaints Discharge Instructions: - Discharge Summary Sheet sp3 - General Headache Without Cause sp3 Forms: - Medication Reconciliation Form sp3 - Antibiotic Education sp3 - Prescription Opioid Use sp3 - Patient Portal Instructions sp3 - Leadership Thank You Letter sp3 Prescriptions: - Diclofenac Sodium 75 mg Oral Tablet Sustained Release - take 1 tablet ORAL route 2 times per day; 30 tablet; Refills: 0, Product sp3 Selection Permitted Signatures: Dispatcher [employer] EDMS Dara Acevedo, RN RN iw Markell Garcia MD MD sp3 Stuart Maya RN RN rs5 Corrections: (The following items were deleted from the chart) 09:00 09:00 Head Brain Wo Cont+CT.RAD.BRZ ordered. EDMS EDMS
--- NOTE | 2024-11-15 09:57 | ER ---
Nurse's Notes [facility] Name: Jesus Pitt Age: 28 yrs Sex: Male : 1995 Arrival Date: 11/15/2024 Time: 08:40 Bed 14 Private MD: Diagnosis: Headache Presentation: 11/15 08:48 Chief complaint: Patient states: my whole head is throbbing, feels like my skull has a iw lot of pressure , started two days ago , is on the left side of my head , i thought it was my wisdom teeth. Coronavirus screen: At this time, the client does not indicate any symptoms associated with coronavirus-19. Ebola Screen: No symptoms or risks identified at this time. Initial Sepsis Screen: Does the patient meet any 2 criteria? No. Patient's initial sepsis screen is negative. Does the patient have a suspected source of infection? No. Patient's initial sepsis screen is negative. Risk Assessment: Do you want to hurt yourself or someone else? Patient reports no desire to harm self or others. Onset of symptoms was November 13, 2024. 08:48 Method Of Arrival: Ambulatory iw 08:48 Acuity: KARLA 3 iw Triage Assessment: 10:12 Pain: Also complains of. rs5 Historical: - Allergies: 08:50 No Known Allergies; iw - PMHx: 08:50 ADD/ADHD; Anxiety; Asthma; iw - PSHx: 08:50 None; iw - Immunization history:: Adult Immunizations not up to date. - Infectious Disease History:: Denies. - Social history:: Smoking status: Patient reports the use of cigarette tobacco products, smokes one-half pack cigarettes per day. Screenin:55 [facility] ED Fall Risk Assessment (Adult) History of falling in the last 3 months, rs5 including since admission No falls in past 3 months (0 pts) Confusion or Disorientation No (0 pts) Intoxicated or Sedated No (0 pts) Impaired Gait No (0 pts) Mobility Assist Device Used No (0 pt) Altered Elimination No (0 pt) Score/Fall Risk Level 0 - 2 = Low Risk Oriented to surroundings, Maintained a safe environment. Abuse screen: Denies threats or abuse. Nutritional screening: No deficits noted. Tuberculosis screening: No symptoms or risk factors identified. Assessment: 08:55 General: Appears in no apparent distress. uncomfortable, Behavior is cooperative. Pain: rs5 Complains of pain in head Pain currently is 8 out of 10 on a pain scale. Quality of pain is described as aching, pressure, Is continuous. Neuro: Level of Consciousness is awake, alert, obeys commands, Oriented to person, place, time, situation, Promotion Specialist are equal bilaterally Moves all extremities. Gait is steady, Speech is normal, Facial symmetry appears normal, Pupils are PERRLA, Intact. Cardiovascular: Patient's skin is warm and dry. Respiratory: Airway is patent Respiratory effort is even, unlabored, Respiratory pattern is regular, symmetrical. GI: Abdomen is round non-distended, Abd is soft and non tender X 4 quads. 08:55 : No signs and/or symptoms were reported regarding the genitourinary system. EENT: No rs5 signs and/or symptoms were reported regarding the EENT system. Derm: Skin is intact, Skin is pink, warm \T\ dry. Musculoskeletal: Range of motion: intact in all extremities. 10:00 Reassessment: Patient and/or family updated on plan of care and expected duration. Pain rs5 level reassessed. Patient is alert, oriented x 3, equal unlabored respirations, skin warm/dry/pink. Patient states feeling better. Vital Signs: 08:48 BP 139 / 86; Pulse 84; Resp 16; Temp 98.2; Pulse Ox 100% on R/A; Weight 74.84 kg; iw Height 5 ft. 11 in. ; Pain 10/10; 09:55 BP 127 / 79; Pulse 77; Resp 17; Pulse Ox 99% on R/A; rs5 10:00 BP 117 / 74; Pulse 70; Resp 17; Pulse Ox 98% on R/A; rs5 08:48 Body Mass Index 23.01 (74.84 kg, 180.34 cm) iw 08:48 Pain Scale: Adult iw ED Course: 08:43 Patient arrived in ED. mr 08:50 Markell Garcia MD is Attending Physician. sp3 08:50 Triage completed. iw 08:51 Stuart Maya, ARIANA is Primary Nurse. rs5 08:51 Arm band placed on. iw 08:55 Patient has correct armband on for positive identification. Bed in low position. Call rs5 light in reach. Side rails up X2. 08:55 No provider procedures requiring assistance completed. rs5 09:31 CT Head Brain wo Cont In Process Unspecified. EDMS 09:56 Jay Fisher MD is Referral Physician. sp3 10:00 Provided Education on: discharge instructions . rs5 10:05 Patient did not have IV access during this emergency room visit. rs5 Administered Medications: 09:15 Drug: HYDROcodone-acetaminophen PO 5 mg-325 mg 2 tabs PO once Route: PO; rs5 10:00 Follow up: Response: No adverse reaction; Pain is decreased rs5 09:15 Drug: Ketorolac IM 30 mg IM once Route: IM; Site: left deltoid; rs5 09:35 Follow up: Response: No adverse reaction; Pain is decreased rs5 Medication: 09:23 VIS not applicable for this client. rs5 Outcome: 09:57 Discharge ordered by . sp3 10:05 Discharged to home ambulatory, rs5 10:05 Condition: stable rs5 10:05 Discharge instructions given to patient, family, Instructed on discharge instructions, follow up and referral plans. medication usage, Demonstrated understanding of instructions, follow-up care, medications, Prescriptions given X 1, 10:10 Patient left the ED. rs5 Signatures: Dispatcher [employer] EDVA Yunior Mei, Reg Reg mr Dara Acevedo RN RN iw Markell Garcia MD MD sp3 Stuart Maya RN RN rs5 Corrections: (The following items were deleted from the chart) 09:23 08:55 Neuro: Level of Consciousness is awake, alert, obeys commands, Oriented to rs5 person, place, time, situation, rs5 12:52 10:15 Reassessment: Patient and/or family updated on plan of care and expected rs5 duration. Pain level reassessed. Patient is alert, oriented x 3, equal unlabored respirations, skin warm/dry/pink. Patient states feeling better. rs5
[2024-11-18 15:12] VITALS: BP 139/86; TEMP 98.2; O2SAT 100
== END 2024-11-15 10:10 | disposition home or self-care (01) ==
LOC: ER 08:40
DX: R51.9 Headache, unspecified (principal); F90.9 Attention-deficit hyperactivity disorder, unspecified type; J45.909 Unspecified asthma, uncomplicated; F17.210 Nicotine dependence, cigarettes, uncomplicated
CPT/HCPCS: 70450; 96372; 99284

== ENCOUNTER 2025-06-12 17:12 | Emergency (ER) | payer OTHER ==
--- OUTSIDE RECORDS SUMMARY | 2025-06-12 17:15 | XMS REPORT | Continuity of Care Document ---
Author Name Unknown Address [address] [place] [address] Organization [facility] Address [address] [place] [address] Care Team Providers Care School Program Director Name Role Phone Katherine Osborne Primary Care Physician [phone]- [phone] Katherine Osborne Attending Clinician [phone] Piotr Denise Attending Clinician [phone] Doctor Unassigned, [place] Attending Clinician U christiano Williamson MD, Tabitha Attending Clinician [phone] Payers Payer Name Policy Type Policy Number Effective Date Expirati on Date Source Problems Condition Name Condition Details Condition Category Status Onset Date Resolution Date Last Treatment Date Treating Clinician Comments Source Foot pain, right Foot pain, right Disease Active 2014-11 00:00: 00 [facility] Metacarpal bone fracture Metacarpal bone fracture Disease Active 2014-11 0 00:00: 00 [facility] Allergies, Adverse Reactions, Alerts Allergy Name Allergy Type Status Severity Reaction(s) Onset Date Inactive Date Treating Clinician Comments Source NO KNOWN ALLERGIE S Drug Class Active [facility] Social History Social Habit Start Date Stop Date Quantity Comments Source Sexual orientation U [facility] History of tobacco use Occasional tobacco smoker [facility] Alcohol intake 2021-01-02 00:00:00 2021-01-02 00:00:00 0 /d [facility] History of Social function 2020-06-09 00:00:00 2020-06-09 00:00:00 [facility] Tobacco use and exposure 2019-07-16 00:00:00 2019-07-16 00:00:00 Smokeless tobacco non-user [facility] Tobacco Comment 2019-07-16 00:00:00 2019-07-16 00:00:00 trying quit- smokes a cigarette daily. Was vaping, quit 1.5 weeks ago [facility] Sex Assigned At 1995 00:00:00 1995 00:00:00 [facility] Smoking Status Start Date Stop Date Source Occasional tobacco smoker 2019-07-16 00:00:00 [facility] Medications Ordered Medication Name Filled Medication Name Start Date Stop Date Current Medication? Ordering Clinician Indication Dosage Frequency Signature (SIG) Comments Components Source ibuprofen 600 mg tablet 07-25 00:00: 00 Yes [id number] 600mg Take 1 tablet by mouth every 6 (six) hours as needed for Pain (scale 4-6). [facility] benzonatate 100 mg capsule 07-25 00:00: 00 Yes [id number] 100mg Take 1 capsule by mouth 3 (three) times daily as needed for Cough. [facility] ondansetron (ZOFRAN ODT) 4 mg disintegrat ing tablet 07-25 00:00: 00 Yes [id number] 4mg Take 1 tablet by mouth every 8 (eight) hours as needed for Nausea and Vomiting (N/V). [facility] DM/pseudoep hed/acetami noph/cpm (FLU, COLD & COUGH MEDICINE ORAL) 07-17 15:20: 35 Yes Take by mouth as needed. [facility] Encounters Start Date/Time End Date/Time Encounter Type Admission Type Attending Clinicians Care Facility Care Department Encounter ID Source 2021-02-03 00:00:00 2021-02-03 00:00:00 Patient Secure Katherine Lao [facility] [id number] [facility] 2019-07-25 15:52:54 2019-07-25 18:06:00 Emergency Piotr [facility] [id number] 2019-07-25 00:00:00 2019-07-25 00:00:00 Orders Only Doctor Unassigned, [place] [facility] [id number] 2019-07-17 14:49:00 2019-07-17 15:42:10 Office Visit Tabitha Williamson [facility] Building [id number] 2019-07-17 00:00:00 2019-07-17 00:00:00 Letter (Out) [facility] [id number] 2019-07-17 00:00:00 2019-07-17 00:00:00 Letter (Out) [facility] [id number] 2019-07-16 13:38:45 2019-07-16 14:29:22 Office Visit [facility] [id number] 2019-07-16 00:00:00 2019-07-16 00:00:00 [facility]phone [facility] [id number]
--- NOTE | 2025-06-12 18:26 | RAD REPORT ---
EXAMINATION: TWO VIEW CHEST XR CLINICAL INDICATION: Cough;Congestion TECHNIQUE: 2 views of the chest was performed. COMPARISON: 12/10/2020 FINDINGS: The lungs are well inflated and clear. The heart is normal in size. No displaced fractures evident. IMPRESSION: No acute or significant abnormalities.
--- NOTE | 2025-06-12 19:08 | ER ---
Nurse's Notes [facility] Name: Jesus Pitt Age: 29 yrs Sex: Male : 1995 Arrival Date: 06/12/2025 Time: 17:12 Bed 4 Private MD: Diagnosis: Acute upper respiratory infection, unspecified Presentation: 06/12 17:22 Chief complaint: Patient states: ZAYAS AND COUGH x3 DAYS. Coronavirus screen: At this bp time, the client does not indicate any symptoms associated with coronavirus-19. Ebola Screen: No symptoms or risks identified at this time. Initial Sepsis Screen: Does the patient meet any 2 criteria? No. Patient's initial sepsis screen is negative. Does the patient have a suspected source of infection? No. Patient's initial sepsis screen is negative. Risk Assessment: Do you want to hurt yourself or someone else? Patient reports no desire to harm self or others. Onset of symptoms is unknown. 17:22 Method Of Arrival: Ambulatory bp 17:22 Acuity: KARLA 4 bp Triage Assessment: 17:23 General: Appears in no apparent distress. Behavior is cooperative, appropriate for age, bp anxious. Pain: Complains of pain in face. EENT: No deficits noted. Neuro: No deficits noted. Cardiovascular: No deficits noted. Respiratory: No deficits noted. GI: No signs and/or symptoms were reported involving the gastrointestinal system. : No signs and/or symptoms were reported regarding the genitourinary system. Derm: No deficits noted. Musculoskeletal: No deficits noted. Historical: - Allergies: 17:23 No Known Allergies; bp - PMHx: 17:23 ADD/ADHD; Anxiety; Asthma; bp - Immunization history:: Adult Immunizations up to date. - Infectious Disease History:: Denies. - Social history:: Smoking status: Patient denies any tobacco usage or history of. Screenin:47 [facility] ED Fall Risk Assessment (Adult) History of falling in the last 3 months, iw including since admission No falls in past 3 months (0 pts) Confusion or Disorientation No (0 pts) Intoxicated or Sedated No (0 pts) Impaired Gait No (0 pts) Mobility Assist Device Used No (0 pt) Altered Elimination No (0 pt) Score/Fall Risk Level 0 - 2 = Low Risk Oriented to surroundings, Maintained a safe environment. Abuse screen: Denies threats or abuse. Nutritional screening: No deficits noted. Tuberculosis screening: No symptoms or risk factors identified. Assessment: 17:46 General: Appears in no apparent distress. Behavior is calm, cooperative. Neuro: Level iw of Consciousness is awake, alert, obeys commands, Oriented to person, place, time, situation, Moves all extremities. Full function. Cardiovascular: Patient's skin is warm and dry. Respiratory: Respiratory effort is even, unlabored, Respiratory pattern is regular, symmetrical. GI: Abdomen is non-distended. Derm: Skin is intact, is healthy with good turgor. Musculoskeletal: Range of motion: intact in all extremities. 19:25 Reassessment: Patient appears in no apparent distress at this time. No changes from lg3 previously documented assessment. Patient and/or family updated on plan of care and expected duration. Pain level reassessed. Patient is alert, oriented x 3, equal unlabored respirations, skin warm/dry/pink. Vital Signs: 17:22 BP 114 / 81; Pulse 93; Resp 16; Temp 98.3; Pulse Ox 99% ; bp 19:25 BP 121 / 77; Pulse 87; Resp 17 S; Pulse Ox 100% on R/A; lg3 ED Course: 17:14 Patient arrived in ED. dr5 17:14 [facility]C [facility] 17:14 Salomón Duncan MD is Attending Physician. dr5 17:23 Triage completed. bp 17:23 Arm band placed on. bp 17:28 Dara Acevedo, RN is Primary Nurse. iw 18:20 Chest Pa And Lat (2 Views) XRAY In Process Unspecified. EDMS 19:25 No provider procedures requiring assistance completed. Patient did not have IV access lg3 during this emergency room visit. Administered Medications: No medications were administered Medication: 17:47 VIS not applicable for this client. iw Outcome: 19:08 Discharge ordered by MD. dr5 19:25 Discharged to home ambulatory, lg3 19:25 Condition: stable 19:25 Discharge instructions given to patient, Instructed on discharge instructions, follow up and referral plans. medication usage, Demonstrated understanding of instructions, follow-up care, medications, Prescriptions given X 1, 19:26 Patient left the ED. lg3 Signatures: Dispatcher [employer] EDMS Dara Acevedo RN RN José Benson RN RN Kate Steward RN RN lg3 Channing, Alden, VIBRATION ENGINEER-C VIBRATION ENGINEER-Cdr5
--- NOTE | 2025-06-12 19:08 | EDPHYS ---
Physician Documentation [facility] Name: Jesus Pitt Age: 29 yrs Sex: Male : 1995 Arrival Date: 06/12/2025 Time: 17:12 Bed 4 Private MD: ED Physician Salomón Duncan HPI: 06/12 17:40 This 29 yrs old Male presents to ER via Ambulatory with complaints of Cough. dr5 17:40 Onset: The symptoms/episode began/occurred acutely. Onset: The symptoms/episode dr5 began/occurred 3 day(s) ago. Patient is a 29-year-old male with history of anxiety, asthma, ADD coming in with cough, congestion for the past 3 days. Patient reports he is concerned that he might have pneumonia or upper resp infection. Patient denies fever, sick contacts.. Historical: - Allergies: 17:23 No Known Allergies; bp - PMHx: 17:23 ADD/ADHD; Anxiety; Asthma; bp - Immunization history:: Adult Immunizations up to date. - Infectious Disease History:: Denies. - Social history:: Smoking status: Patient denies any tobacco usage or history of. ROS: 17:40 Constitutional: as per hpi dr5 Exam: 17:40 Constitutional: This is a well developed, well nourished patient who is awake, alert, dr5 and in no acute distress. Head/Face: Normocephalic, atraumatic. Eyes: Pupils equal round and reactive to light, extra-ocular motions intact. Lids and lashes normal. Conjunctiva and sclera are non-icteric and not injected. Cornea within normal limits. Periorbital areas with no swelling, redness, or edema. Neck: Trachea midline, no thyromegaly or masses palpated, and no cervical lymphadenopathy. Supple, full range of motion without nuchal rigidity, or vertebral point tenderness. No Meningismus. Chest/axilla: Normal chest wall appearance and motion. Nontender with no deformity. No lesions are appreciated. Cardiovascular: Regular rate and rhythm with a normal S1 and S2. Normal PMI, no JVD. No pulse deficits. Respiratory: Lungs have equal breath sounds bilaterally, clear to auscultation. No rales, rhonchi or wheezes noted. No increased work of breathing, no retractions or nasal flaring. Back: No spinal tenderness. No costovertebral tenderness. Full range of motion. Skin: Warm, dry with normal turgor. Normal color with no rashes, no lesions, and no evidence of cellulitis. MS/ Extremity: Pulses equal, no cyanosis. Neurovascular intact. Full, normal range of motion. Neuro: Awake and alert, GCS 15, oriented to person, place, time, and situation. Cranial nerves II-XII grossly intact. Motor strength 5/5 in all extremities. Sensory grossly intact. Cerebellar exam normal. Normal gait. Vital Signs: 17:22 BP 114 / 81; Pulse 93; Resp 16; Temp 98.3; Pulse Ox 99% ; bp 19:25 BP 121 / 77; Pulse 87; Resp 17 S; Pulse Ox 100% on R/A; lg3 MDM: 17:14 Medical Screening Exam initiated dr5 19:08 Differential Diagnosis Bronchitis Influenza Upper Respiratory Infection Allergic dr5 Rhinitis. Data reviewed: vital signs, nurses notes, radiologic studies, plain films. Consideration of Admission/Observation Escalation of care including admission/observation considered. As listed considering patient found to be febrile with abnormalities on chest x-ray. I considered the following discharge prescriptions or medication management in the emergency department I discussed and recommended Over The Counter medications, Medications were administered in the Emergency Department. See MAR. Care significantly affected by the following chronic conditions: Anxiety, asthma, ADD. Care significantly affected by the following Social Determinants of Health: Poor access to healthcare and/or lack of insurance, Poor access to transportation, Problems related to employment. Counseling: I had a detailed discussion with the patient and/or guardian regarding the historical points, exam findings, and any diagnostic results supporting the discharge/admit diagnosis, the presence of at least one elevated blood pressure reading (>120/80) during this emergency department visit, radiology results, the need for outpatient follow up, for definitive care, a family practitioner, to return to the emergency department if symptoms worsen or persist or if there are any questions or concerns that arise at home. Special discussion: I discussed with the patient/guardian in detail that at this point there is no indication for admission to the hospital. It is understood, however, that if the symptoms persist or worsen the patient needs to return immediately for re-evaluation. ED course: Will give patient cough medication. No pneumonia on x-ray. Recommend patient follow-up with primary care doctor. All questions answered. STRICT ER precautions given.. 06/12 17:30 Order name: Chest Pa And Lat (2 Views) XRAY; Complete Time: 18:29 dr5 Administered Medications: No medications were administered Disposition Summary: 06/12/25 19:08 Discharge Ordered Notes: Location: Home dr5 Condition: Stable dr5 Diagnosis - Acute upper respiratory infection, unspecified dr5 Followup: dr5 - With: Private Physician - When: 1 - 2 days - Reason: Recheck today's complaints, Continuance of care, Re-evaluation by your physician Followup: dr5 - With: Emergency Department - When: As needed - Reason: Worsening of condition Discharge Instructions: - Discharge Summary Sheet dr5 - Upper Respiratory Infection, Adult dr5 Forms: - Medication Reconciliation Form dr5 - Patient Portal Instructions dr5 - Leadership Thank You Letter dr5 Prescriptions: - benzonatate 100 mg Oral capsule - take 1 capsule ORAL route 3 times per day; 30 capsule; Refills: 0, Product dr5 Selection Permitted Signatures: Dispatcher [employer] José Dominguez RN RN Alden Kamara, TENON MACHINE OPERATOR-C TENON MACHINE OPERATOR-Cdr5
[2025-06-12 19:34] VITALS: TEMP 98.3
[2025-06-12 19:35] VITALS: BP 121/77; O2SAT 100
== END 2025-06-12 19:26 | disposition home or self-care (01) ==
LOC: ER 17:12
DX: J06.9 Acute upper respiratory infection, unspecified (principal)
CPT/HCPCS: 71046; 99283

== ENCOUNTER 2025-07-26 10:46 | Emergency (ER) | payer OTHER ==
--- OUTSIDE RECORDS SUMMARY | 2025-07-26 10:48 | XMS REPORT | Continuity of Care Document ---
Author Name Unknown Address [address] [place] [address] Organization [facility] [place] Address [address] [place] [address] Care Team Providers Care Mechanic Recovery Name Role Phone Katherine Osborne Primary Care Physician [phone]- [phone] Katherine Osborne Attending Clinician [phone] Piotr Denise Attending Clinician [phone] Doctor Unassigned, [place] Attending Clinician U christiano Williamson MD, Tabitha Attending Clinician [phone] Payers Payer Name Policy Type Policy Number Effective Date Expirati on Date Source Problems Condition Name Condition Details Condition Category Status Onset Date Resolution Date Last Treatment Date Treating Clinician Comments Source Foot pain, right Foot pain, right Disease Active 2014-11 00:00: 00 [facility] Metacarpal bone fracture Metacarpal bone fracture Disease Active 2014-11 0 00:00: 00 [facility] Allergies, Adverse Reactions, Alerts Allergy Name Allergy Type Status Severity Reaction(s) Onset Date Inactive Date Treating Clinician Comments Source NO KNOWN ALLERGIE S Drug Class Active [facility] Social History Social Habit Start Date Stop Date Quantity Comments Source Sexual orientation U [facility] History of tobacco use Occasional tobacco smoker [facility] Alcohol intake 2021-01-02 00:00:00 2021-01-02 00:00:00 0 /d [facility] History of Social function 2020-06-09 00:00:00 2020-06-09 00:00:00 [facility] Tobacco use and exposure 2019-07-16 00:00:00 2019-07-16 00:00:00 Smokeless tobacco non-user [facility] Tobacco Comment 2019-07-16 00:00:00 2019-07-16 00:00:00 trying quit- smokes a cigarette daily. Was vaping, quit 1.5 weeks ago [facility] Sex Assigned At 1995 00:00:00 1995 00:00:00 [facility] Smoking Status Start Date Stop Date Source Occasional tobacco smoker 2019-07-16 00:00:00 [facility] Medications Ordered Medication Name Filled Medication Name Start Date Stop Date Current Medication? Ordering Clinician Indication Dosage Frequency Signature (SIG) Comments Components Source ibuprofen 600 mg tablet 07-25 00:00: 00 Yes [id number] 600mg Take 1 tablet by mouth every 6 (six) hours as needed for Pain (scale 4-6). [facility] benzonatate 100 mg capsule 07-25 00:00: 00 Yes [id number] 100mg Take 1 capsule by mouth 3 (three) times daily as needed for Cough. [facility] ondansetron (ZOFRAN ODT) 4 mg disintegrat ing tablet 07-25 00:00: 00 Yes [id number] 4mg Take 1 tablet by mouth every 8 (eight) hours as needed for Nausea and Vomiting (N/V). [facility] DM/pseudoep hed/acetami noph/cpm (FLU, COLD & COUGH MEDICINE ORAL) 07-17 15:20: 35 Yes Take by mouth as needed. [facility] Encounters Start Date/Time End Date/Time Encounter Type Admission Type Attending Clinicians Care Facility Care Department Encounter ID Source 2021-02-03 00:00:00 2021-02-03 00:00:00 Patient Secure Katherine Lao [facility] [id number] [facility] 2019-07-25 15:52:54 2019-07-25 18:06:00 Emergency Piotr Borges [facility] [id number] 2019-07-25 00:00:00 2019-07-25 00:00:00 Orders Only Doctor Unassigned, [place] [facility] [id number] 2019-07-17 14:49:00 2019-07-17 15:42:10 Office Visit Tabitha [facility] [id number] 2019-07-17 00:00:00 2019-07-17 00:00:00 Letter (Out) [facility] [id number] 2019-07-17 00:00:00 2019-07-17 00:00:00 Letter (Out) [facility] [id number] 2019-07-16 13:38:45 2019-07-16 14:29:22 Office Visit [facility] [id number] 2019-07-16 00:00:00 2019-07-16 00:00:00 Telephone [facility] [id number]
[2025-07-26 11:07] LABS: Absolute Lymphocytes (CBC) 1.4 K/uL (0.7-4.9); Hematocrit 40.3 % (39.6-49.0); Hemoglobin 13.5 g/dL (13.6-17.9); MCH 28.6 pg (27.0-35.0); MCHC 33.4 g/dL (32.0-36.0); MCV 85.5 fL (80-100); MPV 8.1 fL (7.6-11.3); Nucleated RBC Absolute Count 0.0 (0-0); Nucleated Red Blood Cells % 0.0 % (0-0); RBC Red Blood Cell Count 4.71 M/uL (4.33-5.43); White Blood Count 11.20 thou/uL (4.3-10.9)
[2025-07-26 11:17] LABS: PT Prothrombin Time 12.8 SECONDS (10-13.0); PTT, Activated Partial Thromb 28.8 SECONDS (27.2-37.4); Protime INR 1.14
[2025-07-26 11:27] LABS: ALT/SGPT 26 U/L (16-61); AST/SGOT 15 U/L (15-37); Albumin 3.1 g/dL (3.4-5.0); Albumin/Globulin Ratio 0.9 (1.1-1.8); Alkaline Phosphatase 103 U/L (45-117); Anion Gap 6.9 mEq/L (5.0-15.0); BUN Blood Urea Nitrogen 11 mg/dL (7-18); Globulin 3.5 g/dL (2.3-3.5); Glucose Level 96 mg/dL (74-106); Potassium 3.9 mEq/L (3.5-5.1)
[2025-07-26 11:28] LABS: Bilirubin Indirect, Calculated 0.0 mg/dL (0.2-0.8)
[2025-07-26 12:36] LABS: METHAMPHETAM NEGATIVE (NEGATIVE); THC Cannibis NEGATIVE (NEGATIVE)
[2025-07-26] MEDS ORDERED: NA CHLORIDE 0.9% 1,000 ML ONE (14:55)
--- NOTE | 2025-07-26 17:46 | EDPHYS ---
Physician Documentation [facility] Name: Jesus Pitt Age: 29 yrs Sex: Male : 1995 Arrival Date: 07/26/2025 Time: 10:46 Bed 4 Private MD: ED Physician Joel Ronquillo HPI: 07/26 11:28 This 29 yrs old Male presents to ER via EMS with complaints of Overdose. rn 11:28 Patient reports overdose, took unknown number of Zyprexa and Lexapro. States started rn taking them around 1 AM and may be completed taking them around 3 hours prior to arrival but he is not certain. States brody did not take him in the last hour. Reports feels sleepy and complains about feeling that he is being interrogated in the room.. Historical: - Allergies: 11:00 No Known Allergies; iw - PMHx: 10:52 ADD/ADHD; Anxiety; Asthma; iw - Immunization history:: Adult Immunizations unknown. - Infectious Disease History:: unknown . - Family history:: not pertinent. - Hospitalizations: : No recent hospitalization is reported. - Social history:: Smoking status: unknown. ROS: 11:28 Constitutional: Negative for fever, chills, and weight loss, Cardiovascular: Negative rn for chest pain, palpitations, and edema, Respiratory: Negative for shortness of breath, cough, wheezing, and pleuritic chest pain, Abdomen/GI: Negative for abdominal pain, nausea, vomiting, diarrhea, and constipation, MS/Extremity: Negative for injury and deformity, Skin: Negative for injury, rash, and discoloration, Neuro: Negative for headache, weakness, numbness, tingling, and seizure, Exam: 11:28 Constitutional: This is a well developed, well nourished patient who is somnolent but rn awakens to voice and answers questions Head/Face: Normocephalic, atraumatic. Eyes: Pupils equal round and reactive to light, extra-ocular motions intact. No nystagmus Cardiovascular: Regular rate and rhythm. No pulse deficits. Respiratory: No increased work of breathing, no retractions or nasal flaring. Abdomen/GI: Soft, non-tender MS/ Extremity: Pulses equal, no cyanosis. Neurovascular intact. Full, normal range of motion. Equal circumference. Neuro: Somnolent but awakens easily to voice. Normal strength throughout and moves all 4 extremities. 11:31 ECG was reviewed by the Attending Physician. rn Vital Signs: 10:51 BP 106 / 80; Pulse 79; Resp 14; Temp 97; Pulse Ox 96% ; Weight 90.26 kg; Height 5 ft. iw 10 in. ; 11:00 BP 123 / 94; Pulse 76; Resp 14 S; Pulse Ox 94% on R/A; aa5 12:23 BP 115 / 57; Pulse 69; Resp 16 S; Temp 98.2(O); Pulse Ox 96% on R/A; aa5 13:07 BP 111 / 60; Pulse 68; Resp 20 S; Temp 98.2(O); Pulse Ox 95% on R/A; aa5 13:48 BP 112 / 60; Pulse 67; Resp 14 S; Temp 98(O); Pulse Ox 97% on R/A; aa5 14:24 BP 91 / 53; Pulse 71; Resp 13 S; Pulse Ox 94% on R/A; aa5 15:13 BP 116 / 60; Pulse 69; Resp 12 S; Temp 98(O); Pulse Ox 94% on R/A; aa5 16:00 BP 112 / 74; Pulse 62; Resp 12 S; Temp 98.2(O); Pulse Ox 96% on R/A; aa5 17:00 BP 112 / 74; Pulse 72; Resp 14 S; Temp 98.2(O); Pulse Ox 96% on R/A; aa5 18:30 BP 102 / 66; Pulse 72; Resp 18 S; Temp 98.6(O); Pulse Ox 95% on R/A; aa5 20:30 BP 108 / 63; Pulse 63; Resp 17; Temp 98.6; Pulse Ox 97% ; vc1 10:51 Body Mass Index 28.55 (90.26 kg, 177.8 cm) iw MDM: 10:49 Medical Screening Exam initiated rn 11:57 ED course: Poison control did not recommend charcoal or stomach pumping as has been too rn long since he started taking the pills.. 12:13 ED course: Patient somnolent but still arousable to voice, no hyperthermia, no rn tachycardia and no evidence of QRS or QT prolongation at this time.. 14:46 ED course: Repeat ECG still shows normal QRS and QT. rn 17:44 Differential diagnosis: Overdose, intentional self-harm. Data reviewed: vital signs, rn nurses notes, lab test result(s), EKG, and as a result, I will admit patient. Consideration of Admission/Observation Patient was admitted/placed on observation. Escalation of care including admission/observation considered. Counseling: I had a detailed discussion with the patient and/or guardian regarding the historical points, exam findings, and any diagnostic results supporting the discharge/admit diagnosis, lab results, the need for further work-up and treatment in the hospital, the need to transfer to another facility. Response to treatment: the patient's symptoms have markedly improved after treatment. ED course: Patient more alert, awake, talking. Patient under [place] by police. Patient with intentional overdose, will transfer for psychiatric care, is now medically cleared.. 07/26 10:49 Order name: Acetaminophen; Complete Time: 11: rn 07/26 10:49 Order name: Basic Metabolic Panel; Complete Time: rn 07/26 10:49 Order name: CBC with Diff; Complete Time: rn 07/26 10:49 Order name: ETOH Level; Complete Time: rn 07/26 10:49 Order name: Hepatic Function; Complete Time: rn 07/26 10:49 Order name: PT-INR; Complete Time: rn 07/26 10:49 Order name: Ptt, Activated; Complete Time: rn 07/26 10:49 Order name: Salicylate; Complete Time: 11: rn 07/26 10:49 Order name: Urine Drug Screen; Complete Time: 12:37 rn 07/26 11:28 Order name: Magnesium; Complete Time: :57 aa5 07/26 15:04 Order name: Glucose, Ancillary Testing; Complete Time: 15:05 EDMS 07/26 10:49 Order name: EKG - Nurse/Tech; Complete Time: 11:01 rn 07/26 10:49 Order name: IV Saline Lock; Complete Time: 10:51 rn 07/26 10:49 Order name: Labs collected and sent; Complete Time: 11:04 rn 07/26 10:49 Order name: Suicide Precautions; Complete Time: 11:56 rn 07/26 10:49 Order name: Suicide Screening ([place]); Complete Time: 11: rn 07/26 10:59 Order name: Cardiac monitoring; Complete Time: 11:01 rn 07/26 13:45 Order name: EKG - Nurse/Tech: Repeat EKG at 1440; Complete Time: 14:43 aa5 07/26 14:46 Order name: Glucose Level; Complete Time: 14:53 rn EC:31 Rate is 77 beats/min. Rhythm is regular. QRS Golden is Normal. IL interval is normal. QRS rn interval is normal. QT interval is normal. No Q waves. T waves are Normal. No ST changes noted. Clinical impression: Normal ECG. Interpreted by me. Reviewed by me. Administered Medications: 10:51 Drug: NS 0.9% IV 1000 ml IV at 1000 ml once; to be given as a bolus over 60 minutes aa5 Route: IV; Rate: 1000 ml; Site: right wrist; 14:57 Drug: NS 0.9% IV 1000 ml IV at 1000 ml once; to be given as a bolus over 60 minutes iw Route: IV; Rate: 1000 ml; Site: right hand; Disposition Summary: 07/26/25 17:46 Transfer Ordered Notes: Transfer Location: [facility] Facility rn Reason: Higher level of care rn Condition: Stable rn Problem: new rn Symptoms: have improved rn Accepting Physician: (07/26/25 20:36) vc1 Diagnosis - Intentional overdose, uncomplicated rn - Suicidal ideations rn Forms: - Medication Reconciliation Form rn - SBAR form furniture repairer time excluding procedures: 18:44 Critical care time: Bedside Care: 35 minutes. Total time: 35 minutes rn Signatures: Dispatcher [employer] EDDara Simmons RN RN iw Joel Ronquillo MD MD rn Calderon, Audri, RN RN aa5 Kary Brock RN RN vc1 Corrections: (The following items were deleted from the chart) 10:50 10:50 ACETAMINOPHEN+C.LAB.BRZ ordered. EDMS EDMS 10:50 10:50 BASIC METABOLIC PANEL+C.LAB.BRZ ordered. EDMS EDMS 10:50 10:50 CBC+H.LAB.BRZ ordered. EDMS EDMS 10:50 10:50 ETHANOL+C.LAB.BRZ ordered. EDMS EDMS 10:50 10:50 HEPATIC FUNCTION+C.LAB.BRZ ordered. EDMS EDMS 10:50 10:50 PROTIME (+INR)+COAG.LAB.BRZ ordered. EDMS EDMS 10:50 10:50 PTT, ACTIVATED+COAG.LAB.BRZ ordered. EDMS EDMS 10:50 10:50 SALICYLATE+C.LAB.BRZ ordered. EDMS EDMS 10:50 10:50 URINE DRUG SCREEN+UC.LAB.BRZ ordered. EDMS EDMS 18:45 17:46 Dr. green rn 20:36 18:45 Dr. green vc1
--- NOTE | 2025-07-26 17:46 | ER ---
Nurse's Notes [facility] Name: Jesus Pitt Age: 29 yrs Sex: Male : 1995 Arrival Date: 07/26/2025 Time: 10:46 Bed 4 Private MD: Diagnosis: Intentional overdose, uncomplicated;Suicidal ideations Presentation: 07/26 10:49 Chief complaint: EMS states: pt reports taking his Lexapro and Zyprexa starting at 1 am iw , bottles were filled 07/24 , 8 pills of Lexapro left in bottle, 7 pills of Zyprexa left in bottle , qty 30. Coronavirus screen: At this time, the client does not indicate any symptoms associated with coronavirus-19. Ebola Screen: No symptoms or risks identified at this time. Initial Sepsis Screen: Does the patient meet any 2 criteria? No. Patient's initial sepsis screen is negative. Does the patient have a suspected source of infection? No. Patient's initial sepsis screen is negative. Risk Assessment: Do you want to hurt yourself or someone else?. Onset of symptoms was July 26, 2025. 10:49 Method Of Arrival: EMS: [facility] iw 10:49 Acuity: KARLA 3 iw 10:51 Note EMS reports Poison Control Case # [id number]. aa5 Triage Assessment: 11:03 General: Appears in no apparent distress. Behavior is drowsy. iw Historical: - Allergies: 11:00 No Known Allergies; iw - PMHx: 10:52 ADD/ADHD; Anxiety; Asthma; iw - Immunization history:: Adult Immunizations unknown. - Infectious Disease History:: unknown . - Family history:: not pertinent. - Hospitalizations: : No recent hospitalization is reported. - Social history:: Smoking status: unknown. Screenin:51 [facility] ED Fall Risk Assessment (Adult) History of falling in the last 3 months, aa5 including since admission Confusion or Disorientation Yes (5 pts) Intoxicated or Sedated Impaired Gait Mobility Assist Device Used Altered Elimination Score/Fall Risk Level 3 or more points = High Risk Oriented to surroundings, Maintained a safe environment, Educated pt \\T\\ family on fall prevention, incl call for assistance when getting out of bed, Assessed \\T\\ reinforced patient's understanding of fall precautions. Abuse screen: unable to assess, pt is altered. 10:51 Nutritional screening: No deficits noted. Tuberculosis screening: No symptoms or risk aa5 factors identified. Assessment: 10:51 General: Appears comfortable, Behavior is drowsy. Pain: Denies pain. Neuro: Level of aa5 Consciousness is obeys commands, drowsy. Pt easily arousable to verbal and tactile stimuli but unable to remain awake, pt dozes off. . Oriented to person, place, Moves all extremities. Full function Speech is mumble. Facial symmetry appears normal. Cardiovascular: Heart tones S1 S2 present Rhythm is sinus rhythm. Respiratory: Airway is patent Respiratory effort is even, unlabored, Respiratory pattern is regular, symmetrical, Breath sounds are clear bilaterally. GI: Abdomen is round non-distended, Bowel sounds present X 4 quads. Abd is soft and non tender X 4 quads. Reports bloating, Patient currently denies nausea, vomiting. : No signs and/or symptoms were reported regarding the genitourinary system. EENT: No signs and/or symptoms were reported regarding the EENT system. Derm: Skin is pink, warm \\T\\ dry. Musculoskeletal: Range of motion: intact in all extremities. 11:21 Reassessment: Spoke to Milka with poison control, case # [id number]. Recommendations are aa5 as follow: Monitor for [employer] depression, tachycardia, serotonin syndrome, seizures, extrapyramidal symptoms, ataxia, respiratory depression, and hyperthermia. Repeat EKG in 4 hrs, if QRS is >110ms, administer 1-2 mEq bicarb push followed EKG, Bicarb drip is not recommended unless acidosis occurs, QRS and QTC prolongation may occur, if QTC >500 need to optimize potassium to 4-4.5 and magnesium 2-2.5. Serotonin syndrome may cause hyperthermia that is not responsive to ibuprofen or tylenol tx, needs to be treated by manual cooling. Benzos may be administered for seizure activity or agitation. was notified of recommendations. . 11:30 Reassessment: Pt remains sleeping, drowsy, awakens easily to verbal and tactile aa5 stimuli. . 11:30 Cardiovascular: Rhythm is sinus rhythm. aa5 12:19 Reassessment: Pt awake yelling "nurse, nurse", checked on pt, pt voicing need to void aa5 with clear speech, pt used urinal without assistance. Pt refusing to answer any questions, pt now asleep with equal and unlabored respirations. . 13:06 Reassessment: Pt sleeping, with snoring respirations. . aa5 13:48 Reassessment: Pt sleeping with snoring respirations, easy to awaken to verbal and aa5 tactile stimuli. . 14:53 Reassessment: pt awakens to verbal stimuli, BS =101. iw 15:12 Reassessment: Spoke to poison control again, recommended repeat EKG in 4 hrs from now, aa5 MD aware. . 16:00 Reassessment: Pt sleeping, equal and unlabored respirations.. Cardiovascular: Rhythm is aa5 sinus rhythm. 17:00 Reassessment: Patient is alert, oriented x 3, equal unlabored respirations, skin aa5 warm/dry/pink. Pt using urinal to void. Pt refuses to answer any questions. . 18:00 Reassessment: PT sleeping. . aa5 18:33 Reassessment: Report given to nurse Tiff[place] at [facility] [place]. aa5 19:00 General: Appears in no apparent distress. comfortable, Behavior is calm, cooperative, vc1 appropriate for age. Pain: Denies pain. Neuro: Level of Consciousness is awake, alert, obeys commands, Oriented to person, place, time, situation, Appropriate for age. Cardiovascular: Heart tones S1 S2 present Capillary refill < 3 seconds Patient's skin is warm and dry. Respiratory: Airway is patent Respiratory effort is even, unlabored, Respiratory pattern is regular, symmetrical, Breath sounds are clear bilaterally. GI: No deficits noted. No signs and/or symptoms were reported involving the gastrointestinal system. : No deficits noted. No signs and/or symptoms were reported regarding the genitourinary system. EENT: No deficits noted. No signs and/or symptoms were reported regarding the EENT system. Derm: Skin is intact, is healthy with good turgor, Skin is dry, Skin is normal, Skin temperature is warm. Musculoskeletal: Circulation, motion, and sensation intact. Range of motion: intact in all extremities. Overdose: 10:51 [place] Suicide Severity Screening: "In the past month, have you wished you were aa5 or wished you could go to sleep and not wake up?" Patient responds "yes." Based off client's responses, additional C-SSRS screening questions required. Overdose today "In the past month, have you actually had any thoughts of killing yourself?" Patient responds "yes." "In your lifetime, have you ever done anything, started to do anything, or prepared to do anything to end your life?" Unknown, pt unable to answer, pt altered. Overdose today. 20:34 [place] Suicide Severity Screening:. vc1 Vital Signs: 10:51 BP 106 / 80; Pulse 79; Resp 14; Temp 97; Pulse Ox 96% ; Weight 90.26 kg; Height 5 ft. iw 10 in. ; 11:00 BP 123 / 94; Pulse 76; Resp 14 S; Pulse Ox 94% on R/A; aa5 12:23 BP 115 / 57; Pulse 69; Resp 16 S; Temp 98.2(O); Pulse Ox 96% on R/A; aa5 13:07 BP 111 / 60; Pulse 68; Resp 20 S; Temp 98.2(O); Pulse Ox 95% on R/A; aa5 13:48 BP 112 / 60; Pulse 67; Resp 14 S; Temp 98(O); Pulse Ox 97% on R/A; aa5 14:24 BP 91 / 53; Pulse 71; Resp 13 S; Pulse Ox 94% on R/A; aa5 15:13 BP 116 / 60; Pulse 69; Resp 12 S; Temp 98(O); Pulse Ox 94% on R/A; aa5 16:00 BP 112 / 74; Pulse 62; Resp 12 S; Temp 98.2(O); Pulse Ox 96% on R/A; aa5 17:00 BP 112 / 74; Pulse 72; Resp 14 S; Temp 98.2(O); Pulse Ox 96% on R/A; aa5 18:30 BP 102 / 66; Pulse 72; Resp 18 S; Temp 98.6(O); Pulse Ox 95% on R/A; aa5 20:30 BP 108 / 63; Pulse 63; Resp 17; Temp 98.6; Pulse Ox 97% ; vc1 10:51 Body Mass Index 28.55 (90.26 kg, 177.8 cm) ED Course: 10:48 Patient arrived in ED. iw 10:49 Joel Ronquillo MD is Attending Physician. rn 10:51 Triage completed. iw 10:51 Maintain EMS IV. Dressing intact. Good blood return noted. Site clean \\T\\ dry. Gauge \\T\\ aa 5 site: 20G to R wrist . Flushed with 10 mL NS. 10:51 Arm band placed on. aa5 10:51 Patient has correct armband on for positive identification. Bed in low position. Side aa5 rails up X2. Client placed on continuous cardiac and pulse oximetry monitoring. NIBP monitoring applied. telemetry monitor on. Pulse ox on. NIBP on. 11:01 EKG done, by ED staff, reviewed by Joel Ronquillo MD. jl7 11:04 Maricel Badillo, RN is Primary Nurse. aa5 11:53 No provider procedures requiring assistance completed. aa5 14:43 EKG done, by ED staff, reviewed by Joel Ronquillo MD. em1 18:26 connected Tiffanie from [facility] with Maricel Rn for nurse to nurse report. eb 19:00 Report given to ARIANA Preston and ARIANA Love. aa5 20:36 IV discontinued, intact, bleeding controlled, No redness/swelling at site. Pressure vc1 dressing applied. Administered Medications: 10:51 Drug: NS 0.9% IV 1000 ml IV at 1000 ml once; to be given as a bolus over 60 minutes aa5 Route: IV; Rate: 1000 ml; Site: right wrist; 14:57 Drug: NS 0.9% IV 1000 ml IV at 1000 ml once; to be given as a bolus over 60 minutes iw Route: IV; Rate: 1000 ml; Site: right hand; Medication: 11:52 VIS not applicable for this client. aa5 Outcome: 17:46 ER care complete, transfer ordered by . rn 20:35 Transferred by mental health officer. to other acute care facility: to [address] Transfer form completed. X-rays sent w/ patient. 20:35 Condition: stable 20:36 Patient left the ED. vc1 Signatures: Dara Acevedo RN RN iw Joel Ronquillo MD MD rn Martinez, Eric em1 Maricel Badillo, RN RN aa5 Hong Ley RN RN jl7 Celestina Conde Kary Brock RN RN vc1 Corrections: (The following items were deleted from the chart) 10:52 10:51 BP 106 / 80; Pulse 79bpm; Resp 14bpm; Pulse Ox 96%; Temp 97F; iw iw 11:11 10:51 [place] Suicide Severity Screening: "In the past month, have you wished you were aa5 or wished you could go to sleep and not wake up?" Patient responds "no." "In the past month, have you actually had any thoughts of killing yourself?" Patient responds "no." "In your lifetime, have you ever done anything, started to do anything, or prepared to do anything to end your life?" Unknown, pt unable to answer, pt altered. aa5 11:43 11:21 Reassessment: Spoke to Milka with poison control, case # [id number]. [facility] aa5 11:44 11:02 Arm band placed on aa5 11:46 10:51 [place] Suicide Severity Screening: "In the past month, have you wished you were aa5 or wished you could go to sleep and not wake up?" Patient responds "no." "In the past month, have you actually had any thoughts of killing yourself?" Patient responds "no." "In your lifetime, have you ever done anything, started to do anything, or prepared to do anything to end your life?" Unknown, pt unable to answer, pt altered. Overdose today. aa5 13:49 13:07 BP 111 / 60; Pulse 68bpm; Resp 20bpm; Spontaneous; Pulse Ox 95% RA; 5 aa5 19:12 15:12 Reassessment: Spoke to poison control again, recommended repeat EKG in 4 hrs from aa5 now. . aa5
[2025-07-26 21:21] VITALS: TEMP 98.6
[2025-07-26 21:22] VITALS: BP 108/63; O2SAT 97
== END 2025-07-26 20:36 ==
LOC: ER 10:46
DX: T43.591A Poisoning by other antipsychotics and neuroleptics, accidental (unintentional), initial encounter (principal); T43.221A Poisoning by selective serotonin reuptake inhibitors, accidental (unintentional), initial encounter; R45.851 Suicidal ideations; Y92.9 Unspecified place or not applicable; F41.9 Anxiety disorder, unspecified; J45.909 Unspecified asthma, uncomplicated; F90.9 Attention-deficit hyperactivity disorder, unspecified type
CPT/HCPCS: 93005 ×2; 85025; 80048; 36415; 83735; 85610; 82947; 80076; 85730; 80307; 99285; 80143; 80179; 82077; J7030